=== PATIENT | female | born 2005 | race Caucasian/White ===

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

== ENCOUNTER 2024-01-04 23:47 | Emergency (ER) | payer MEDICAID ==
--- NOTE | 2024-01-04 23:52 | ERPHSYRPT ---
- History of Present Illness Time Seen by Provider: 01/04/24 23:52 Historian: patient, family Exam Limitations: no limitations Physician History: This is a morbidly obese 18-year-old white female patient who has a history of migraine headaches and depression and presents to the emergency department with her mother by private vehicle secondary to right upper quadrant abdominal pain that occurred after eating [employer] double cheeseburger at 1930 and then eating again at 2100 macaroni and cheese with hot dogs in it. The pain is described as sharp with intermittent throbbing. Patient still has her gallbladder in place. She has bloated and belching gassy symptoms. She denies dark urine and denies acholic stools. She has no chest pain. She is not short of breath. Timing/Duration: today Quality: sharpness, throbbing (Remittent knee) Abdominal Pain Onset Location: RUQ Pain Radiation: back (Straight through to her back) Severity of Pain-Max: moderate Severity of Pain-Current: mild Modifying Factors: Improves With: eating Associated Symptoms: No chest pain, No diarrhea, No fever/chills, No nausea, No shortness of breath, No vomiting Previous symptoms: same symptoms as today Allergies/Adverse Reactions: No Known Drug Allergies Allergy (Verified 01/05/24 00:01) Home Medications: Bupropion HCl 150 mg Sr [Wellbutrin SR 150 MG] 150 mg PO DAILY 01/05/24 [History] Hx Tetanus, Diphtheria Vaccination/Date Given: Yes Hx Influenza Vaccination/Date Given: No Hx Pneumococcal Vaccination/Date Given: No Travel Risk - International Travel Have you traveled outside of the country in past 3 weeks: No - Emerging Infectious Disease Are you exhibiting symptoms associated with any current EIDs: No - Review of Systems Constitutional: No Symptoms Eyes: No Symptoms Ears, Nose, & Throat: No Symptoms Respiratory: No Symptoms Cardiac: No Symptoms Abdominal/Gastrointestinal: Abdominal Pain, Appetite Changes, No Nausea, No Vomiting, No Diarrhea Genitourinary Symptoms: No Symptoms Musculoskeletal: No Symptoms Skin: No Symptoms Neurological: No Symptoms Psychological: No Symptoms Endocrine: No Symptoms Hematologic/Lymphatic: No Symptoms Immunological/Allergic: No Symptoms All Other Systems: Reviewed and Negative - Past Medical History Pertinent Past Medical History: Yes Neurological History: Migraines ENT History: No Pertinent History Cardiac History: No Pertinent History Respiratory History: No Pertinent History Endocrine Medical History: No Pertinent History Musculoskeletal History: Fractures GI Medical History: No Pertinent History History: No Pertinent History Psycho-Social History: Depression Female Reproductive Disorders: Menstrual Problems Other Medical History: pcos - Past Surgical History Past Surgical History: Yes Neuro Surgical History: No Pertinent History Cardiac: No Pertinent History Respiratory: No Pertinent History Gastrointestinal: No Pertinent History Genitourinary: No Pertinent History Musculoskeletal: No Pertinent History Female Surgical History: No Pertinent History - Social History Smoking Status: Never smoker Exposure to second hand smoke: Yes Drug Use: none Patient Lives Alone: No - Nursing Vital Signs Nursing Vital Signs: Initial Vital Signs Temperature 97.6 F 01/05/24 00:06 Pulse Rate 71 01/05/24 00:06 Respiratory Rate 18 01/05/24 00:06 Blood Pressure 116/77 01/05/24 00:06 O2 Sat by Pulse Oximetry 99 01/05/24 00:06 Pain Scale Pain Intensity 1 - Physical Exam General Appearance: mild distress, alert, anxiety, obese Eye Exam: PERRL/EOMI, post op pupil defect (L) Ears, Nose, Throat Exam: normal ENT inspection, moist mucous membranes Neck Exam: normal inspection, non-tender, supple, full range of motion Respiratory Exam: normal breath sounds, lungs clear, airway intact, No chest tenderness, No respiratory distress Cardiovascular Exam: regular rate/rhythm, normal heart sounds, normal peripheral pulses Gastrointestinal/Abdomen Exam: soft, normal bowel sounds, tenderness (Right upp er quadrant), guarding (Right upper quadrant) Pelvic Exam: not done Rectal Exam: not done Back Exam: normal inspection, normal range of motion, No CVA tenderness, No vertebral tenderness Extremity Exam: normal inspection, normal range of motion, pelvis stable Neurologic Exam: alert, oriented x 3, cooperative, nursing assoc II-XII nml as tested, nml cerebellar function, nml station & gait, sensation nml Skin Exam: normal color, warm, dry Lymphatic Exam: No adenopathy SpO2 Interpretation: normal O2 Delivery: Room Air - Course Nursing assessment & vital signs reviewed: Yes Ordered Tests: Active Orders 24 hr Category Date Time Status IV Insertion STAT Care 01/05/24 00:31 Active ABDOMEN AND PELVIS W/0 CONTRAS [CT] Stat Exams 01/05/24 00:32 Completed AMYLASE Stat Lab 01/05/24 00:45 Completed CBC W DIFF Stat Lab 01/05/24 00:45 Completed CMP Stat Lab 01/05/24 00:45 Completed CULTURE,URINE Stat Lab 01/05/24 00:33 Received HCG QUALITATIVE, URINE Stat Lab 01/05/24 00:33 Completed LIPASE Stat Lab 01/05/24 00:45 Completed UA W/RFX UR CULTURE Stat Lab 01/05/24 00:33 Completed Medication Summary Generic Name Dose Route Start Last Admin Trade Name Sophie PRN Reason Stop Dose Admin Ceftriaxone Sodium 1 gm in 100 mls @ 200 mls/hr 01/05/24 01:47 01/05/24 02:04 Rocephin 1 Gm / 100 Ml Nacl IV 01/05/24 02:16 200 mls/hr STAT ONE 200 mls/hr Administration Discontinued Medications Generic Name Dose Route Start Last Admin Trade Name Sophie PRN Reason Stop Dose Admin Hydrocodone Bitart/Acetaminophen 2 tab 01/05/24 01:49 Hydrocodone/Apap 5/325 1 Tab Tablet PO 01/05/24 01:50 SENT HOME W/ PATIENT ONE Hydromorphone HCl 0.5 mg 01/05/24 00:30 01/05/24 00:37 Hydromorphone 1 Mg/1ml Inj IV 01/05/24 00:31 Not Given STAT ONE Sodium Chloride 1,000 mls @ 999 mls/hr 01/05/24 00:31 01/05/24 01:49 Sodium Chloride 0.9% 1000 Ml IV 01/05/24 01:31 Infused .Q1H1M STA Infusion Sodium Chloride Confirm 01/05/24 00:36 Sodium Chloride 0.9% 1000 Ml Administered 01/05/24 00:37 Dose 1,000 mls @ ud .ROUTE .STK-MED ONE Ceftriaxone Sodium Confirm 01/05/24 02:02 Rocephin 1 Gm / 100 Ml Nacl Administered 01/05/24 02:03 Dose 1 gm in 100 mls @ ud IV .STK-MED ONE Ketorolac Tromethamine 30 mg 01/05/24 00:35 01/05/24 00:49 Ketorolac Tromethamine 30 Mg/Ml Inj IV 01/05/24 00:36 30 mg STAT ONE Administration Ketorolac Tromethamine Confirm 01/05/24 00:36 Ketorolac Tromethamine 30 Mg/Ml Inj Administered 01/05/24 00:37 Dose 30 mg .ROUTE .STK-MED ONE Ondansetron HCl 4 mg 01/05/24 00:30 01/05/24 00:49 Ondansetron Hcl 4 Mg/2 Ml Vial IV 01/05/24 00:31 4 mg STAT ONE Administration Ondansetron HCl Confirm 01/05/24 00:36 Ondansetron Hcl 4 Mg/2 Ml Vial Administered 01/05/24 00:37 Dose 4 mg .ROUTE .STK-MED ONE Pantoprazole Sodium 40 mg 01/05/24 00:31 01/05/24 00:49 Pantoprazole 40 Mg Vial IV 01/05/24 00:32 40 mg STAT ONE Administration Pantoprazole Sodium Confirm 01/05/24 00:36 Pantoprazole 40 Mg Vial Administered 01/05/24 00:37 Dose 40 mg IV .K-MED ONE Lab/Rad Data: Laboratory Result Diagrams 01/05/24 00:45 01/05/24 00:45 Laboratory Results 01/05/24 01/05/24 01/05/24 Range/Units 00:45 00:45 00:33 WBC 13.9 H (3.98-10.04) x10^3/uL RBC 4.25 (3.93-5.22) x10^6/uL Hgb 11.8 (11.2-15.7) g/dL Hct 36.7 (34.1-44.9) % MCV 86.4 (79.4-94.8) fL MCH 27.8 (25.6-32.2) pg MCHC 32.2 (32.2-35.5) g/dL RDW 12.2 (11.7-14.4) % Plt Count 361 (182-369) x10^3/uL MPV 9.9 (9.4-12.3) fL Gran % 57.7 (34.0-71.1) % Immature Gran % (Auto) 0.2 (0.001-0.429) % Nucleat RBC Rel Count 0.0 (0.00-0.2) % Eos # (Auto) 0.13 (0.04-0.36) x10^3/uL Immature Gran # (Auto) 0.03 (0.001-0.031) x10^3u/L Absolute Lymphs (auto) 5.03 H (1.18-3.74) x10^3/uL Absolute Monos (auto) 0.62 (0.24-0.86) x10^3/uL Absolute Nucleated RBC 0.00 (0.00-0.012) x10^3u/L Lymphocytes % 36.3 (19.3-51.7) % Monocytes % 4.5 L (4.7-12.5) % Eosinophils % 0.9 (0.7-5.8) % Basophils % 0.4 (0.1-1.2) % Absolute Granulocytes 8.00 H (1.56-6.13) x10^3/uL Basophils # 0.06 (0.01-0.08) x10^3/uL Sodium 139 (135-145) mmol/L Potassium 3.8 (3.5-5.1) mmol/L Chloride 105 (98-107) mmol/L Carbon Dioxide 24 (22-30) mmol/L Anion Gap 14.0 (5-15) MEQ/L BUN 12 (7-17) mg/dL Creatinine 0.64 (0.52-1.04) mg/dL Estimated GFR 130.5 ML/MIN Glucose 113 H (74-106) mg/dL Calcium 9.4 (8.4-10.2) mg/dL Total Bilirubin 0.30 (0.2-1.3) mg/dL AST 67 H (14-36) U/L ALT 41 H (0-35) U/L Alkaline Phosphatase 64 (38-126) U/L Serum Total Protein 7.6 (6.3-8.2) g/dL Albumin 4.4 (3.5-5.0) g/dL Amylase 49 (30-110) U/L Lipase 51 (23-300) U/L Urine Color (Yellow) Urine Appearance (Clear) Urine pH (4.6-8.0) Ur Specific [place] (1.005-1.030) Urine Protein (Negative) Urine Glucose (UA) (Negative) mg/dL Urine Ketones (Negative) Urine Blood (Negative) Urine Nitrite (Negative) Urine Bilirubin (Negative) Urine Urobilinogen (0.2) mg/dL Ur Leukocyte Esterase (Negative) U Hyaline Cast (Auto) (0-2) /LPF Urine Microscopic RBC (0-5) /HPF Urine Microscopic WBC (0-5) /HPF Ur Epithelial Cells (None Seen) /HPF Urine Bacteria (None Seen) /HPF Urine Culture Reflexed (NO) Urine HCG, Qual NEGATIVE (NEGATIVE) 01/05/24 Range/Units 00:33 WBC (3.98-10.04) x10^3/uL RBC (3.93-5.22) x10^6/uL Hgb (11.2-15.7) g/dL Hct (34.1-44.9) % MCV (79.4-94.8) fL MCH (25.6-32.2) pg MCHC (32.2-35.5) g/dL RDW (11.7-14.4) % Plt Count (182-369) x10^3/uL MPV (9.4-12.3) fL Gran % (34.0-71.1) % Immature Gran % (Auto) (0.001-0.429) % Nucleat RBC Rel Count (0.00-0.2) % Eos # (Auto) (0.04-0.36) x10^3/uL Immature Gran # (Auto) (0.001-0.031) x10^3u/L Absolute Lymphs (auto) (1.18-3.74) x10^3/uL Absolute Monos (auto) (0.24-0.86) x10^3/uL Absolute Nucleated RBC (0.00-0.012) x10^3u/L Lymphocytes % (19.3-51.7) % Monocytes % (4.7-12.5) % Eosinophils % (0.7-5.8) % Basophils % (0.1-1.2) % Absolute Granulocytes (1.56-6.13) x10^3/uL Basophils # (0.01-0.08) x10^3/uL Sodium (135-145) mmol/L Potassium (3.5-5.1) mmol/L Chloride (98-107) mmol/L Carbon Dioxide (22-30) mmol/L Anion Gap (5-15) MEQ/L BUN (7-17) mg/dL Creatinine (0.52-1.04) mg/dL Estimated GFR ML/MIN Glucose (74-106) mg/dL Calcium (8.4-10.2) mg/dL Total Bilirubin (0.2-1.3) mg/dL AST (14-36) U/L ALT (0-35) U/L Alkaline Phosphatase (38-126) U/L Serum Total Protein (6.3-8.2) g/dL Albumin (3.5-5.0) g/dL Amylase (30-110) U/L Lipase (23-300) U/L Urine Color Yellow (Yellow) Urine Appearance Cloudy A (Clear) Urine pH 7.0 (4.6-8.0) Ur Specific [place] 1.025 (1.005-1.030) Urine Protein Trace A (Negative) Urine Glucose (UA) Negative (Negative) mg/dL Urine Ketones Negative (Negative) Urine Blood Moderate A (Negative) Urine Nitrite Negative (Negative) Urine Bilirubin Negative (Negative) Urine Urobilinogen 0.2 (0.2) mg/dL Ur Leukocyte Esterase Moderate A (Negative) U Hyaline Cast (Auto) NONE SEEN (0-2) /LPF Urine Microscopic RBC 0-2 (0-5) /HPF Urine Microscopic WBC 21-50 A (0-5) /HPF Ur Epithelial Cells Few (None Seen) /HPF Urine Bacteria Few A (None Seen) /HPF Urine Culture Reflexed YES (NO) Urine HCG, Qual (NEGATIVE) - Progress Progress: improved, pain not gone completely Progress Note: 01/05/24 00:56 My medical decision making and the assignment of moderate complexity to this patient's medical issue today is based on review of the patient's past medical history, review of the patient's medication list, review of the patient drug allergy list, history present illness and physical findings on examination. The workup in this patient includes placement of intravenous line, infusion of normal saline solution, infusion of Zofran intravenously, infusion of Dilaudid intravenously, CBC, CMP, amylase, lipase, urinary hCG, urinalysis, CT scan of the abdomen pelvis without contrast. Differential diagnosis includes but not limited to cholelithiasis, cholecystitis, pancreatitis, bowel obstruction, appendicitis, colitis 01/05/24 02:[address] scan of the abdomen pelvis without contrast was interpreted by the radiologist and I reviewed the impression. The impression states no acute intra-abdominal or intrapelvic abnormality. I interpreted the patient's laboratory data results. There is leukocytosis and urinary tract infection. Counseled pt/family regarding: lab results, diagnosis, need for follow-up, rad results Medical Desision Making - Independent Historian Additional History obtained from: Mother - Diagnostic Testing Diagnostic test were ordered, analyzed, and reviewed by me: Yes Radiological Interpretation: Reviewed by me, Teleradiologist Report - Risk of complications The pt has a mod risk of morbidity or mortality based on: Need for prescription drug management - Departure Departure Disposition: Home Clinical Impression: UTI (urinary tract infection), Right upper quadrant abdominal pain Condition: Stable Critical Care Time: No Referrals: TAL TORREZ PA [Primary Care Provider] - Follow up/PCP as directed Additional Instructions: Drink plenty fluids. Take your medication as prescribed. Call your primary care provider today to make arrangements for follow-up appointment to be seen and evaluated in the next 3 to 5 days. Take Tylenol and ibuprofen for pain control. Avoid fatty greasy spicy foods. Prescriptions: Ciprofloxacin [Cipro 500 MG] 500 mg PO BID #14 tablet
[2024-01-05 00:11] VITALS: TEMP 97.6
[2024-01-05] MEDS ORDERED: TORAdol 30 mg Injection ONE (00:36)
[2024-01-05] MEDS ORDERED: Sodium Chloride 0.9% 1000 ML 1,000 ML ONE (00:36)
[2024-01-05] MEDS ORDERED: Zofran 4 MG/2 ML VIAL ONE (00:36)
[2024-01-05] MEDS ORDERED: PROTONIX 40 MG IV IV ONE (00:36)
[2024-01-05] MEDS: Hydromorphone 1 mg/ml Injection IV ONE (00:37)
[2024-01-05] MEDS: Sodium Chloride 0.9% 1000 ML 1,000 ML IV STA (00:48)
[2024-01-05] MEDS: Zofran 4 MG/2 ML VIAL IV ONE (00:49)
[2024-01-05] MEDS: PROTONIX 40 MG IV IV ONE (00:49)
[2024-01-05] MEDS: TORAdol 30 mg Injection IV ONE (00:49)
[2024-01-05 00:51] LABS: BASOPHIL % 0.4 % (0.1-1.2); Basophil (Absolute #) 0.06 x10^3/uL (0.01-0.08); Eosinophil % 0.9 % (0.7-5.8); Eosinophil (Absolute #) 0.13 x10^3/uL (0.04-0.36); Hematocrit 36.7 % (34.1-44.9); Hemoglobin 11.8 g/dL (11.2-15.7); IMMATURE GRAN # 0.03 x10^3u/L (0.001-0.031); IMMATURE GRAN % 0.2 % (0.001-0.429); Lymphocyte (Absolute #) 5.03 x10^3/uL (1.18-3.74); Lymphocytes % 36.3 % (19.3-51.7); Mean Cell Volume 86.4 fL (79.4-94.8); Mean Corpuscular Hemoglobin 27.8 pg (25.6-32.2); Mean Corpuscular Hgb Concent. 32.2 g/dL (32.2-35.5); Mean Platelet Volume 9.9 fL (9.4-12.3); Monocyte (Absolute #) 0.62 x10^3/uL (0.24-0.86); Monocytes % 4.5 % (4.7-12.5); Neutrophil % 57.7 % (34.0-71.1); Platelet Count 361 x10^3/uL (182-369); Red Blood Count 4.25 x10^6/uL (3.93-5.22); Red Cell Distribution Width 12.2 % (11.7-14.4); White Blood Count 13.9 x10^3/uL (3.98-10.04)
[2024-01-05 00:54] LABS: HCG URINE TEST NEGATIVE (NEGATIVE)
[2024-01-05 00:56] LABS: Appearance Cloudy (Clear); Bacteria Few /HPF (None Seen); Bilirubin Negative (Negative); Blood Moderate (Negative); Epithelial Cells Few /HPF (None Seen); Glucose, Urine Negative (Negative); Hyaline Casts NONE SEEN /LPF (0-2); Ketones Negative (Negative); Leukocyte Esterase Moderate (Negative); Nitrite Negative (Negative); Protein,Urine Dip Trace (Negative); RBC 0-2 /HPF (0-5); Specific Gravity 1.025 (1.005-1.030); Urobilinogen 0.2 mg/dL (0.2); WBC 21-50 /HPF (0-5)
[2024-01-05 00:57] LABS: ADD URINE CULTURE? YES (NO)
[2024-01-05 01:04] LABS: ALBUMIN 4.4 g/dL (3.5-5.0); BILIRUBIN,TOTAL 0.3 mg/dL (0.2-1.3); Calcium 9.4 mg/dL (8.4-10.2); Creatinine 1 0.64 mg/dL (0.52-1.04); EST GLOMERULAR FILTRATION RATE 130.5 ML/MIN; Potassium 3.8 mmol/L (3.5-5.1); Total Protein 7.6 g/dL (6.3-8.2)
[2024-01-05] MEDS ORDERED: ROCEPHIN 1 GM / 100 ML NaCl 1 GM/100 ML IVPB IV ONE (02:02)
[2024-01-05] MEDS: ROCEPHIN 1 GM / 100 ML NaCl 1 GM/100 ML IVPB IV ONE (02:04)
--- NOTE | 2024-01-05 02:12 | XRAY ---
CLINICAL HISTORY: Right side abdominal pain COMPARISON: Prior CT abdomen and pelvis dated 05/25/2023. TECHNIQUE: CT of abdomen and pelvis was performed without IV contrast.One of the following dose reduction techniques was utilized for this exam.Automated exposure control, adjustment of the mA and/or kV according to patient size, and use of iterative reconstruction. FINDINGS: Visualized lungs: No concerning findings. Evaluation of the abdominal and pelvic visceral organs is limited without intravenous contrast. The unenhanced liver, spleen, pancreas, and adrenal glands are grossly unremarkable. The gallbladder is present. The kidneys are normal in size and attenuation without obvious calcification. There is no hydronephrosis or perinephric stranding. The ureters are normal in caliber. No adenopathy or fluid collections are seen. No evidence of focal or diffuse bowel wall thickening or evidence of bowel obstruction is seen. The appendix is visualized in the right lower quadrant and appears within normal limits. The aorta is normal in caliber. The urinary bladder is normal in contour. Pelvic viscera are grossly unremarkable. No peritoneal nodularity. No ascites. No pneumoperitoneum. No aggressive appearing osseous lesions are identified. Fat containing umbilical hernia with size of defect measures about 21 x 19 mm. IMPRESSION: No imaging findings to explain patient's symptoms. Stable chronic findings. Electronically Signed by: Scot Jules MD. (01/05/2024 02:08:00 EDT)
[2024-01-05 02:15] VITALS: BP 116/72; PULSE 74; RESP 20; O2SAT 98
[2024-01-05] MEDS ORDERED: NORCO 5/325 MG ONE (02:15)
[2024-01-05] MEDS: NORCO 5/325 MG PO ONE (02:16)
[2024-01-05 03:20] LABS: Slide Review 1 YES
== END 2024-01-05 02:43 | disposition home or self-care (01) ==
LOC: ED 23:47
DX: N39.0 Urinary tract infection, site not specified (principal); R10.11 Right upper quadrant pain; Z79.899 Other long term (current) drug therapy
CPT/HCPCS: 36000; 36415; 74176; 80053; 81001; 81025; 82150; 83690; 85025; 87086; 96374; 99284; J0696; J1885; J2405; A9270-GY

== ENCOUNTER 2024-01-10 16:01 | Emergency (ER) | payer MEDICAID ==
[2024-01-10 16:21] VITALS: RESP 18; TEMP 97; O2SAT 98
[2024-01-10] MEDS ORDERED: TORAdol 30 mg Injection ONE (16:57)
[2024-01-10] MEDS: TORAdol 30 mg Injection IM ONE (16:58)
--- NOTE | 2024-01-10 17:02 | ERPHSYRPT ---
- History of Present Illness Time Seen by Provider: 01/10/24 16:56 Historian: patient, family Exam Limitations: no limitations Patient Subjective Stated Complaint: C/O intermittent right sided abdominal pain. Patient indicates she was here earlier in the week and diagnosed with a UTI. She was given a prescription for keflex and pepcid that patient states she picked up from the pharmacy but has never started taking them. Triage Nursing Assessment: Patient ambulated back to ER without difficulties. She is alert and oriented. No SOB. Skin tone normal. RUTH MORGAN. Physician History: C/O intermittent right sided abdominal pain. Patient indicates she was here earlier in the week and diagnosed with a UTI. She was given a prescription for keflex and pepcid that patient states she picked up from the pharmacy but has never started taking them. Timing/Duration: day(s) Abdominal Pain Onset Location: RUQ, epigastric Pain Radiation: scapula Severity of Pain-Max: mild Severity of Pain-Current: mild Modifying Factors: Improves With: nothing Associated Symptoms: denies symptoms Previous symptoms: same symptoms as today Body Map: 1 - pain 2 - pain radiation Allergies/Adverse Reactions: ciprofloxacin [From Cipro] Adverse Reaction (Verified 01/10/24 16:17) Rash Home Medications: Bupropion HCl 150 mg Sr [Wellbutrin SR 150 MG] 150 mg PO DAILY 01/05/24 [History] Hydrocodone/Acetaminophen [Hydrocodone-Acetamin 5-325 mg] 1 tab PO Q6-8HPRN PRN 01/10/24 [History] Hx Tetanus, Diphtheria Vaccination/Date Given: Yes Hx Influenza Vaccination/Date Given: No Hx Pneumococcal Vaccination/Date Given: No Immunizations Up to Date: Yes Travel Risk - International Travel Have you traveled outside of the country in past 3 weeks: No - Emerging Infectious Disease Are you exhibiting symptoms associated with any current EIDs: Yes Symptoms: Abdominal Pain - Review of Systems Constitutional: No Symptoms, No Fever, No Chills Eyes: No Symptoms Ears, Nose, & Throat: No Symptoms Respiratory: No Symptoms Cardiac: No Symptoms Abdominal/Gastrointestinal: Abdominal Pain, No Nausea, No Vomiting Genitourinary Symptoms: No Symptoms Musculoskeletal: No Symptoms Skin: No Symptoms Neurological: No Symptoms - Past Medical History Pertinent Past Medical History: Yes Neurological History: Migraines ENT History: No Pertinent History Cardiac History: No Pertinent History Respiratory History: No Pertinent History Endocrine Medical History: No Pertinent History Musculoskeletal History: Fractures GI Medical History: No Pertinent History History: No Pertinent History Psycho-Social History: Depression Female Reproductive Disorders: Menstrual Problems Other Medical History: pcos - Past Surgical History Past Surgical History: Yes Neuro Surgical History: No Pertinent History Cardiac: No Pertinent History Respiratory: No Pertinent History Gastrointestinal: No Pertinent History Genitourinary: No Pertinent History Musculoskeletal: No Pertinent History Female Surgical History: No Pertinent History - Female History Hx Last Menstrual Period: NOW Hx Now: No - Social History Smoking Status: Never smoker Exposure to second hand smoke: Yes Drug Use: none Patient Lives Alone: No - Social Determinants of Health Will the patient participate in the screening: Declined to provide - Nursing Vital Signs Nursing Vital Signs: Initial Vital Signs Blood Pressure 130/73 01/10/24 16:15 O2 Sat by Pulse Oximetry 98 01/10/24 16:15 Pain Scale Pain Intensity 7 - Physical Exam General Appearance: no apparent distress, alert Eye Exam: PERRL/EOMI, eyes nml inspection Ears, Nose, Throat Exam: normal ENT inspection, pharynx normal, moist mucous membranes Neck Exam: normal inspection, non-tender, supple, full range of motion Respiratory Exam: normal breath sounds, lungs clear, No respiratory distress Cardiovascular Exam: regular rate/rhythm, normal heart sounds Gastrointestinal/Abdomen Exam: soft, tenderness (RUQ,Epigastric), No mass Pelvic Exam: not done Rectal Exam: deferred Back Exam: normal inspection, normal range of motion, No CVA tenderness, No vertebral tenderness Extremity Exam: normal inspection, normal range of motion, pelvis stable Neurologic Exam: alert, oriented x 3, cooperative, normal mood/affect, nml cerebellar function, sensation nml, No motor deficits Skin Exam: normal color, warm, dry SpO2 Interpretation: normal SpO2: 98 O2 Delivery: Room Air - Course Nursing assessment & vital signs reviewed: Yes Ordered Tests: Medication Summary Discontinued Medications Generic Name Dose Route Start Last Admin Trade Name Freq PRN Reason Stop Dose Admin Ketorolac Tromethamine 60 mg 01/10/24 16:55 Ketorolac Tromethamine 30 Mg/Ml Inj IM 01/10/24 16:56 STAT ONE Lab/Rad Data: CT/ABDOMEN AND PELVIS W/0 CONTRAS CLINICAL HISTORY: Right side abdominal pain COMPARISON: Prior CT abdomen and pelvis dated 05/25/2023. TECHNIQUE: CT of abdomen and pelvis was performed without IV contrast.One of the following dose reduction techniques was utilized for this exam.Automated exposure control, adjustment of the mA and/or kV according to patient size, and use of iterative reconstruction. FINDINGS: Visualized lungs: No concerning findings. Evaluation of the abdominal and pelvic visceral organs is limited without intravenous contrast. The unenhanced liver, spleen, pancreas, and adrenal glands are grossly unremarkable. The gallbladder is present. The kidneys are normal in size and attenuation without obvious calcification. There is no hydronephrosis or perinephric stranding. The ureters are normal in caliber. No adenopathy or fluid collections are seen. No evidence of focal or diffuse bowel wall thickening or evidence of bowel obstruction is seen. The appendix is visualized in the right lower quadrant and appears within normal limits. The aorta is normal in caliber. The urinary bladder is normal in contour. Pelvic viscera are grossly unremarkable. No peritoneal nodularity. No ascites. No pneumoperitoneum. No aggressive appearing osseous lesions are identified. Fat containing umbilical hernia with size of defect measures about 21 x 19 mm. IMPRESSION: No imaging findings to explain patient's symptoms. Stable chronic findings. Electronically Signed by: Scot Jules MD. (01/05/2024 02:08:00 EDT) - Progress Progress: unchanged Progress Note: 01/10/24 16:59 Patient is advised to take her antibiotic as prescribed for her urinary tract infection. I discussed with patient and her mother about ordering outpatient gallbladder ultrasound to rule out gallstone or any other gallbladder related etiology as outpatient. Counseled pt/family regarding: lab results, diagnosis, need for follow-up, rad results Medical Desision Making - Independent Historian Additional History obtained from: Mother - Risk of complications Low Risk: Low risk of morbidity from additional dx testing or treatment - Departure Departure Disposition: Home Clinical Impression: UTI (urinary tract infection) Qualifiers: Urinary tract infection type: acute pyelonephritis Qualified Code(s): N10 - Acute pyelonephritis Abdominal pain Qualifiers: Abdominal location: right upper quadrant Qualified Code(s): R10.11 - Right upper quadrant pain Condition: Stable Critical Care Time: No Referrals: TAL TORREZ PA [Primary Care Provider] - Follow Up with PCP/3 days Instructions: Abdominal pain Additional Instructions: Please start taking your antibiotic which was given to you for your urinary tract infection. We have ordered outpatient gallbladder ultrasound for you please bring the order which you when you have a gallbladder ultrasound appointment. Discharge/Care Plan LITO CHAMPION was seen on 01/10/24 in the Emergency Room. The patient was counseled regarding Diagnosis,Lab results, Imaging studies, need for follow up and when to return to the Emergency Room. Prescriptions given: Discharge Note I have spoken with the patient and/or caregivers. I have explained the patient's condition, diagnosis and treatment plan based on the information available to me at this time. I have answered the patient's and/or caregiver's questions and addressed any concerns. The patient and/or caregivers have as good understanding of the patient's diagnosis, condition and treatment plan as can be expected at this point. The vital signs have been stable. The patient's condition is stable and appropriate for discharge from the emergency department. The patient will pursue further outpatient evaluation with the primary care physician or other designated or consulting physician as outlined in the dis charge instructions. The patient and/or caregivers are agreeable to this plan of care and follow-up instructions have been explained in detail. The patient and/or caregivers have received these instruction. The patient/and or caregivers are aware that any significant change in condition or worsening of symptoms should prompt an immediate return to this or the closest emergency department or call 911. LITO CHAMPION was seen on 01/10/24 n the Emergency Room. At that time you were treated for an emergent condition, during your visit Laboratory, Radiology and/or other procedures may have been ordered. It is very important that you follow-up with your Primary Care Physician MICA TORREZ within the next 24-48 hours to review your Emergency Room visit and the final results of testing that was ordered. Some test results such as Urine Cultures, Blood Cultures, and other cultures if ordered will not be finalized for 24-48 hours. If you do not have a Primary Care Provider please call the medical records department at [phone] ext [phone] to obtain a copy of your results or you may sign into our patient portal to obtain these results by visiting us @ [email or web address] and completing the following steps: 1. Click on the Patient Portal link 2. Click the Patient Self Enrollment Link to complete the enrollment form and entering your 3. Once the enrollment form is completed you will receive an email with a temporary ID and password at the email address you provided. 4. Next choose a user name and password. Your user name must be at least 4 characters long and your password must be at least 4 characters long. 5. Choose a security question from the list and provide your answer to the question. If you already have signed into the Health Portal you may access your Health Care Information 17/11 by the following steps: 1. Login to our website @ [email or web address] 2. Enter your original user name and password. FAQS The [facility] Health Portal is an online tool that contains your Lab Results, Radiology Reports, Visit History, Discharge Instructions and Health Summary Lab and Radiology Results will not be available for 72 hours on the portal. The Portal is a secure site, passwords are encryted and URLs are re-written so they cannot be copied and pasted. You and authorized family members are the only ones who can access your Portal. Also there is a timeout feature that protects your information if you leave the Portal page open. If you have technical difficulty please use the Contact Us link on the page this will allow you to submit any questions you have regarding the Portal or you may contact the Medical Record Department at [phone] ext [phone]. Outpatient Orders: GALLBLADDER Time Frame: 2 Days, Facility: [facility], Location: RADIOLOGY
[2024-01-10 17:17] VITALS: BP 131/75; PULSE 80
== END 2024-01-10 17:18 | disposition home or self-care (01) ==
LOC: ED 16:01
DX: N10 Acute pyelonephritis (principal); R10.11 Right upper quadrant pain; Z79.891 Long term (current) use of opiate analgesic; Z79.899 Other long term (current) drug therapy
CPT/HCPCS: 96372; 99283; J1885

== ENCOUNTER 2024-01-31 21:39 | Emergency (ER) | payer MEDICAID ==
[2024-01-31 22:13] VITALS: RESP 18; TEMP 97.4; O2SAT 99
[2024-01-31] MEDS ORDERED: TORAdol 30 mg Injection ONE (22:16)
[2024-01-31] MEDS ORDERED: XYLOCAINE VISCOUS 2% 15 ML CUP ONE (22:16)
[2024-01-31] MEDS ORDERED: PROTONIX 40 MG IV IV ONE (22:16)
[2024-01-31] MEDS ORDERED: MAALOX ES 30 ML UNIT DOSE ONE (22:16)
[2024-01-31] MEDS: GI COCKTAIL 45 ML (Maalox/Lidocaine) PO ONE (22:17)
[2024-01-31] MEDS: PROTONIX 40 MG IV IV ONE (22:17)
[2024-01-31] MEDS: TORAdol 30 mg Injection IV ONE (22:17)
[2024-01-31 22:25] LABS: Absolute Neutrophil Ct (ANC) 4.93 x10^3/uL (1.56-6.13); BASOPHIL % 0.5 % (0.1-1.2); Basophil (Absolute #) 0.05 x10^3/uL (0.01-0.08); Eosinophil % 0.9 % (0.7-5.8); Eosinophil (Absolute #) 0.08 x10^3/uL (0.04-0.36); Hemoglobin 11.9 g/dL (11.2-15.7); IMMATURE GRAN # 0.01 x10^3u/L (0.001-0.031); IMMATURE GRAN % 0.1 % (0.001-0.429); Lymphocyte (Absolute #) 3.85 x10^3/uL (1.18-3.74); Mean Cell Volume 83.9 fL (79.4-94.8); Mean Corpuscular Hemoglobin 27.7 pg (25.6-32.2); Mean Corpuscular Hgb Concent. 33.1 g/dL (32.2-35.5); Mean Platelet Volume 10.1 fL (9.4-12.3); Monocyte (Absolute #) 0.47 x10^3/uL (0.24-0.86); Neutrophil % 52.5 % (34.0-71.1); Platelet Count 310 x10^3/uL (182-369); Red Blood Count 4.29 x10^6/uL (3.93-5.22); White Blood Count 9.4 x10^3/uL (3.98-10.04)
[2024-01-31 22:36] LABS: Appearance Clear (Clear); Bacteria None Seen /HPF (None Seen); Bilirubin Negative (Negative); Blood Large (Negative); Epithelial Cells None Seen /HPF (None Seen); Glucose, Urine Negative (Negative); Hyaline Casts NONE SEEN /LPF (0-2); Ketones Negative (Negative); Leukocyte Esterase Small (Negative); Nitrite Negative (Negative); Ph 6.5 (4.6-8.0); Protein,Urine Dip Negative (Negative); Urobilinogen 0.2 mg/dL (0.2)
[2024-01-31 22:39] LABS: ALBUMIN 4.3 g/dL (3.5-5.0); ANION GAP 16.3 MEQ/L (5-15); BILIRUBIN,TOTAL 0.4 mg/dL (0.2-1.3); Calcium 9.6 mg/dL (8.4-10.2); Creatinine 1 0.62 mg/dL (0.52-1.04); EST GLOMERULAR FILTRATION RATE 131.5 ML/MIN; Potassium 3.8 mmol/L (3.5-5.1); Total Protein 7.2 g/dL (6.3-8.2)
[2024-01-31 22:46] VITALS: PULSE 69
--- NOTE | 2024-01-31 22:57 | ERPHSYRPT ---
- History of Present Illness Time Seen by Provider: 01/31/24 21:44 Historian: patient Exam Limitations: no limitations Patient Subjective Stated Complaint: pt states that the pain started in her back and is now has pain to upper rt quad Triage Nursing Assessment: pt ambulated into the er; pt is axo x4; c/o abd pain; pt states 6/10 pain to RUQ; abd large, round, soft, tender; active bowel sounds in all quads; pt states pain is worse with food; pt denies N/V/D; skin PDW; no respiratory distress present; hypertensive Physician History: 18 years old female with history of off-and-on upper abdominal pain specially in the right side for quite some time who has been seen in this ER multiple times and has CT/ultrasound done with negative gallstone/acute cholecystitis. She was prescribed Pepcid but she was out of town and has not been taking. Patient reports pain is getting worse intermittently for the last couple of weeks and today it started in the right back and now in the right anterior upper abdomen. Food makes it worse. No associated nausea or vomiting. No urinary complaints. Patient recently finished course of antibiotics for UTI. Allergies/Adverse Reactions: ciprofloxacin [From Cipro] Adverse Reaction (Verified 01/31/24 21:46) Rash Home Medications: Bupropion HCl 150 mg Sr [Wellbutrin SR 150 MG] 150 mg PO DAILY 01/05/24 [History] Hx Tetanus, Diphtheria Vaccination/Date Given: Yes Hx Influenza Vaccination/Date Given: No Hx Pneumococcal Vaccination/Date Given: No Immunizations Up to Date: Yes Travel Risk - International Travel Have you traveled outside of the country in past 3 weeks: No - Emerging Infectious Disease Are you exhibiting symptoms associated with any current EIDs: Yes Symptoms: Abdominal Pain - Review of Systems Constitutional: No Symptoms Ears, Nose, & Throat: No Symptoms Respiratory: No Symptoms Cardiac: No Symptoms Abdominal/Gastrointestinal: Abdominal Pain Genitourinary Symptoms: No Symptoms Musculoskeletal: Back Pain Skin: No Symptoms Neurological: No Symptoms Endocrine: No Symptoms Hematologic/Lymphatic: No Symptoms Immunological/Allergic: No Symptoms - Past Medical History Pertinent Past Medical History: Yes Neurological History: Migraines ENT History: No Pertinent History Cardiac History: No Pertinent History Respiratory History: No Pertinent History Endocrine Medical History: No Pertinent History Musculoskeletal History: Fractures GI Medical History: No Pertinent History, Other History: No Pertinent History Psycho-Social History: Depression Female Reproductive Disorders: Menstrual Problems Other Medical History: pcos. fatty liver - Past Surgical History Past Surgical History: Yes Neuro Surgical History: No Pertinent History Cardiac: No Pertinent History Respiratory: No Pertinent History Gastrointestinal: No Pertinent History Genitourinary: No Pertinent History Musculoskeletal: No Pertinent History Female Surgical History: No Pertinent History - Female History Hx Last Menstrual Period: 01/31/24 Hx Now: No - Social History Smoking Status: Never smoker Exposure to second hand smoke: Yes Drug Use: none Patient Lives Alone: No - Social Determinants of Health Will the patient participate in the screening: Declined to provide - Nursing Vital Signs Nursing Vital Signs: Initial Vital Signs Temperature 97.4 F 01/31/24 21:52 Pulse Rate 79 01/31/24 21:52 Respiratory Rate 18 01/31/24 21:52 Blood Pressure 167/103 01/31/24 21:52 O2 Sat by Pulse Oximetry 99 01/31/24 21:52 Pain Scale Pain Intensity 6 - Physical Exam General Appearance: no apparent distress, alert Eye Exam: PERRL/EOMI Ears, Nose, Throat Exam: normal ENT inspection Neck Exam: normal inspection, full range of motion Respiratory Exam: normal breath sounds, lungs clear Cardiovascular Exam: regular rate/rhythm, normal heart sounds Gastrointestinal/Abdomen Exam: soft, normal bowel sounds, tenderness (Minimal tenderness epigastric/right upper quadrant) Back Exam: normal inspection, normal range of motion Neurologic Exam: alert, oriented x 3, cooperative Skin Exam: normal color SpO2 Interpretation: normal SpO2: 99 O2 Delivery: Room Air Ordered Tests: Active Orders 24 hr Category Date Time Status IV Insertion STAT Care 01/31/24 22:07 Active CBC W DIFF Stat Lab 01/31/24 22:10 Completed CMP Stat Lab 01/31/24 22:10 Completed CULTURE,URINE Stat Lab 01/31/24 22:10 Received LIPASE Stat Lab 01/31/24 22:10 Completed UA W/RFX UR CULTURE Stat Lab 01/31/24 22:10 Completed Medication Summary Discontinued Medications Generic Name Dose Route Start Last Admin Trade Name Freq PRN Reason Stop Dose Admin Al Hydrox/Mg Hydrox/Simethicone Confirm 01/31/24 22:16 Mag Hydrox/Al Hydrox/Simeth 30 Ml Udcup Administered 01/31/24 22:17 Dose 30 ml .ROUTE .STK-MED ONE Ketorolac Tromethamine 30 mg 01/31/24 22:07 01/31/24 22:17 Ketorolac Tromethamine 30 Mg/Ml Inj IV 01/31/24 22:08 30 mg STAT ONE Administration Ketorolac Tromethamine Confirm 01/31/24 22:16 Ketorolac Tromethamine 30 Mg/Ml Inj Administered 01/31/24 22:17 Dose 30 mg .ROUTE .STK-MED ONE Lidocaine HCl Confirm 01/31/24 22:16 Lidocaine Hcl 2% Viscous 15 Ml Udcup Administered 01/31/24 22:17 Dose 15 ml .ROUTE .STK-MED ONE Magnesium Hydroxide 45 ml 01/31/24 22:07 01/31/24 22:17 Mag Hydrx/Alum Hyd/Simeth/Lido 45 Ml Bottle PO 01/31/24 22:08 45 ml STAT ONE Administration Pantoprazole Sodium 40 mg 01/31/24 22:07 01/31/24 22:17 Pantoprazole 40 Mg Vial IV 01/31/24 22:08 40 mg STAT ONE Administration Pantoprazole Sodium Confirm 01/31/24 22:16 Pantoprazole 40 Mg Vial Administered 01/31/24 22:17 Dose 40 mg IV .STK-MED ONE Lab/Rad Data: Laboratory Result Diagrams 01/31/24 22:10 01/31/24 22:10 Laboratory Results 01/31/24 01/31/24 01/31/24 Range/Units 22:10 22:10 22:10 WBC 9.4 (3.98-10.04) x10^3/uL RBC 4.29 (3.93-5.22) x10^6/uL Hgb 11.9 (11.2-15.7) g/dL Hct 36.0 (34.1-44.9) % MCV 83.9 (79.4-94.8) fL MCH 27.7 (25.6-32.2) pg MCHC 33.1 (32.2-35.5) g/dL RDW 12.0 (11.7-14.4) % Plt Count 310 (182-369) x10^3/uL MPV 10.1 (9.4-12.3) fL Gran % 52.5 (34.0-71.1) % Immature Gran % (Auto) 0.1 (0.001-0.429) % Nucleat RBC Rel Count 0.0 (0.00-0.2) % Eos # (Auto) 0.08 (0.04-0.36) x10^3/uL Immature Gran # (Auto) 0.01 (0.001-0.031) x10^3u/L Absolute Lymphs (auto) 3.85 H (1.18-3.74) x10^3/uL Absolute Monos (auto) 0.47 (0.24-0.86) x10^3/uL Absolute Nucleated RBC 0.00 (0.00-0.012) x10^3u/L Lymphocytes % 41.0 (19.3-51.7) % Monocytes % 5.0 (4.7-12.5) % Eosinophils % 0.9 (0.7-5.8) % Basophils % 0.5 (0.1-1.2) % Absolute Granulocytes 4.93 (1.56-6.13) x10^3/uL Basophils # 0.05 (0.01-0.08) x10^3/uL Sodium 140 (135-145) mmol/L Potassium 3.8 (3.5-5.1) mmol/L Chloride 108 H (98-107) mmol/L Carbon Dioxide 20 L (22-30) mmol/L Anion Gap 16.3 H (5-15) MEQ/L BUN 13 (7-17) mg/dL Creatinine 0.62 (0.52-1.04) mg/dL Estimated GFR 131.5 ML/MIN Glucose 111 H (74-106) mg/dL Calcium 9.6 (8.4-10.2) mg/dL Total Bilirubin 0.40 (0.2-1.3) mg/dL AST 25 (14-36) U/L ALT 35 (0-35) U/L Alkaline Phosphatase 70 (38-126) U/L Serum Total Protein 7.2 (6.3-8.2) g/dL Albumin 4.3 (3.5-5.0) g/dL Lipase 46 (23-300) U/L Urine Color Yellow (Yellow) Urine Appearance Clear (Clear) Urine pH 6.5 (4.6-8.0) Ur Specific [place] 1.010 (1.005-1.030) Urine Protein Negative (Negative) Urine Glucose (UA) Negative (Negative) mg/dL Urine Ketones Negative (Negative) Urine Blood Large A (Negative) Urine Nitrite Negative (Negative) Urine Bilirubin Negative (Negative) Urine Urobilinogen 0.2 (0.2) mg/dL Ur Leukocyte Esterase Small A (Negative) U Hyaline Cast (Auto) NONE SEEN (0-2) /LPF Urine Microscopic RBC 11-20 A (0-5) /HPF Urine Microscopic WBC 11-20 A (0-5) /HPF Ur Epithelial Cells None Seen (None Seen) /HPF Urine Bacteria None Seen (None Seen) /HPF Urine Culture Reflexed YES (NO) - Progress Progress: improved, re-examined Progress Note: 01/31/24 22:55 18-year-old is evaluated in the ER for epigastric/right upper abdominal pain for quite some time which is lately getting worse. Patient has a CT and ultrasound done which are negative for acute cholecystitis/cholelithiasis or pancreatitis. Patient was prescribed Pepcid but has not been taking it for quite some time and her pain is getting worse. She has minimal tenderness in right upper quadrant and epigastric area. Negative Sheffield sign. Normal white count, chemistries fairly unremarkable with normal lipase. I have reviewed patient ultrasound which showed fatty liver and no acute cholecystitis finding. Also CT abdomen pelvis was fairly unremarkable for any acute findings. She is given Protonix, GI cocktail and Toradol, on reevaluation she is feeling better. I believe patient symptoms are more of a acid peptic disease related and will give a prescription of Protonix to go home and outpatient follow-up recommended. Do not think she needs another imaging and can be discharged with outpatient follow-up. Discussed signs symptoms of worsening return to ER which she seems understanding. Stable for discharge. Counseled pt/family regarding: lab results, diagnosis, need for follow-up Medical Desision Making - Diagnostic Testing Diagnostic test were ordered, analyzed, and reviewed by me: Yes - Risk of complications The pt has a mod risk of morbidity or mortality based on: Need for prescription drug management - Departure Departure Disposition: Home Clinical Impression: Right upper quadrant abdominal pain, GERD (gastroesophageal reflux disease) Condition: Stable Critical Care Time: No Referrals: KHRIS BENTLEY FNP [Primary Care Provider] - Follow up with PCP 1 day Instructions: Severe Abdominal Pain, Adult (DC), Acid Reflux, Adult and Adolescent ED Additional Instructions: Take Tylenol as needed. Follow-up with primary care for reevaluation. Return to ER for intractable pain/vomiting/fever chills etc. Prescriptions: PANTOPRAZOLE 40 mg Tablet [Protonix 40MG Tablet] 40 mg PO QAM #30 tab
[2024-01-31 23:11] VITALS: BP 132/83
== END 2024-01-31 23:12 | disposition home or self-care (01) ==
LOC: ED 21:39
DX: K21.9 Gastro-esophageal reflux disease without esophagitis (principal); R10.11 Right upper quadrant pain; Z79.899 Other long term (current) drug therapy
CPT/HCPCS: 36000; 36415; 80053; 81001; 83690; 85025; 87086; 96374; 96375; 99284; J1885; A9270-GY

== ENCOUNTER 2024-02-03 02:10 | Emergency (ER) | payer MEDICAID ==
--- NOTE | 2024-02-03 02:37 | ERPHSYRPT ---
- History of Present Illness Time Seen by Provider: 02/03/24 02:37 Source: patient Exam Limitations: no limitations Physician History: 18-year-old female presents to emergency department for evaluation of right upper quadrant pain. Patient reports she was in our ED for the same just 2 days ago. Patient was diagnosed with GERD. Patient prescribed antacids but she has not taken her antacids. Patient reports her pain awoke her from her sleep. No trauma. No fever. No strenuous activity. Symptoms are mild to moderate in intensity. No specific worsening or improving factors. Mother at bedside. Patient voices no other complaints or concerns at this time. Portions of this note were created with voice recognition technology. There may be grammatical, spelling, punctuation or sound alike errors Timing/Duration: today Severity: moderate Modifying Factors: Improves With: nothing Associated Symptoms: denies symptoms Allergies/Adverse Reactions: ciprofloxacin [From Cipro] Adverse Reaction (Verified 02/03/24 02:17) Rash Home Medications: Bupropion HCl 150 mg Sr [Wellbutrin SR 150 MG] 150 mg PO DAILY 01/05/24 [History] Hx Tetanus, Diphtheria Vaccination/Date Given: Yes Hx Influenza Vaccination/Date Given: No Hx Pneumococcal Vaccination/Date Given: No Travel Risk - Emerging Infectious Disease Are you exhibiting symptoms associated with any current EIDs: Yes Symptoms: Abdominal Pain - Review of Systems Constitutional: No Symptoms, No Fever, No Chills Eyes: No Symptoms Ears, Nose, & Throat: No Symptoms Respiratory: No Symptoms, No Cough, No Dyspnea Cardiac: No Symptoms, No Chest Pain, No Edema, No Syncope Abdominal/Gastrointestinal: No Symptoms, No Abdominal Pain, No Nausea, No Vomiting, No Diarrhea Genitourinary Symptoms: No Symptoms, No Dysuria Musculoskeletal: No Symptoms, No Back Pain, No Neck Pain Skin: No Symptoms, No Rash Neurological: No Symptoms, No Dizziness, No Focal Weakness, No Sensory Changes Psychological: No Symptoms Endocrine: No Symptoms Hematologic/Lymphatic: No Symptoms Immunological/Allergic: No Symptoms All Other Systems: Reviewed and Negative - Past Medical History Pertinent Past Medical History: Yes Neurological History: Migraines ENT History: No Pertinent History Cardiac History: No Pertinent History Respiratory History: No Pertinent History Endocrine Medical History: No Pertinent History Musculoskeletal History: Fractures GI Medical History: No Pertinent History, Other History: No Pertinent History Psycho-Social History: Depression Female Reproductive Disorders: Menstrual Problems Other Medical History: pcos. fatty liver - Past Surgical History Past Surgical History: Yes Neuro Surgical History: No Pertinent History Cardiac: No Pertinent History Respiratory: No Pertinent History Gastrointestinal: No Pertinent History Genitourinary: No Pertinent History Musculoskeletal: No Pertinent History Female Surgical History: No Pertinent History - Female History Hx Last Menstrual Period: 01/31/24 Hx Now: No - Social History Smoking Status: Never smoker Exposure to second hand smoke: Yes Drug Use: none Patient Lives Alone: No - Social Determinants of Health Will the patient participate in the screening: Declined to provide - Nursing Vital Signs Nursing Vital Signs: Initial Vital Signs Temperature 97.3 F 02/03/24 02:18 Pulse Rate 79 02/03/24 02:18 Respiratory Rate 18 02/03/24 02:18 Blood Pressure 134/79 02/03/24 02:18 O2 Sat by Pulse Oximetry 98 02/03/24 02:18 Pain Scale Pain Intensity 5 - Physical Exam General Appearance: no apparent distress, alert Eye Exam: PERRL/EOMI, eyes nml inspection Ears, Nose, Throat Exam: normal ENT inspection, TMs normal, pharynx normal, moist mucous membranes Neck Exam: normal inspection, non-tender, supple, full range of motion Respiratory Exam: normal breath sounds, lungs clear, No respiratory distress Cardiovascular Exam: regular rate/rhythm, normal heart sounds, normal peripheral pulses Gastrointestinal/Abdomen Exam: soft, normal bowel sounds, other (Tenderness to palpation right upper quadrant), No tenderness, No mass Back Exam: normal inspection, normal range of motion, No CVA tenderness, No vertebral tenderness Extremity Exam: normal inspection, normal range of motion, pelvis stable Neurologic Exam: alert, oriented x 3, cooperative, normal mood/affect, sensation nml, No motor deficits Skin Exam: normal color, warm, dry, No rash Lymphatic Exam: No adenopathy SpO2 Interpretation: normal SpO2: 98 O2 Delivery: Room Air - Course Nursing assessment & vital signs reviewed: Yes - CT Exams Abdomen/Pelvis CT Interpretation: Tele-radiologist Report (CT abdomen pelvis unremarkable) Ordered Tests: Active Orders 24 hr Category Date Time Status IV Insertion STAT Care 02/03/24 02:27 Active ABDOMEN AND PELVIS W/0 CONTRAS [CT] Stat Exams 02/03/24 02:28 Completed CBC W DIFF Stat Lab 02/03/24 02:39 Completed CMP Stat Lab 02/03/24 02:39 Completed CULTURE,URINE Stat Lab 02/03/24 03:35 Received HCG QUALITATIVE, URINE Stat Lab 02/03/24 03:35 Completed LIPASE Stat Lab 02/03/24 02:39 Completed TROPONIN Q4H Lab 02/03/24 02:39 Completed TROPONIN Q4H Lab 02/03/24 06:30 Ordered TROPONIN Q4H Lab 02/03/24 10:30 Ordered UA W/RFX UR CULTURE Stat Lab 02/03/24 03:35 Completed Medication Summary Generic Name Dose Route Start Last Admin Trade Name Freq PRN Reason Stop Dose Admin Sodium Chloride 1,000 mls @ 100 mls/hr 02/03/24 02:30 02/03/24 02:42 Sodium Chloride 0.9% 1000 Ml IV 03/04/24 02:29 100 mls/hr .Q10H ALANIS Administration Discontinued Medications Generic Name Dose Route Start Last Admin Trade Name Freq PRN Reason Stop Dose Admin Ketorolac Tromethamine 30 mg 02/03/24 02:27 02/03/24 02:40 Ketorolac Tromethamine 30 Mg/Ml Inj IV 02/03/24 02:28 30 mg STAT ONE Administration Ketorolac Tromethamine Confirm 02/03/24 02:40 Ketorolac Tromethamine 30 Mg/Ml Inj Administered 02/03/24 02:41 Dose 30 mg .ROUTE .STK-MED ONE Nitrofurantoin Macrocrystals 100 mg 02/03/24 04:09 02/03/24 04:12 Nitrofurantoin Macro 100 Mg Capsule PO 02/03/24 04:10 100 mg STAT ONE Administration Nitrofurantoin Macrocrystals Confirm 02/03/24 04:12 Nitrofurantoin Macro 100 Mg Capsule Administered 02/03/24 04:13 Dose 100 mg .ROUTE .STK-MED ONE Lab/Rad Data: Laboratory Result Diagrams 02/03/24 02:39 02/03/24 02:39 Laboratory Results 02/03/24 02/03/24 02/03/24 Range/Units 03:35 03:35 02:39 WBC (3.98-10.04) x10^3/uL RBC (3.93-5.22) x10^6/uL Hgb (11.2-15.7) g/dL Hct (34.1-44.9) % MCV (79.4-94.8) fL MCH (25.6-32.2) pg MCHC (32.2-35.5) g/dL RDW (11.7-14.4) % Plt Count (182-369) x10^3/uL MPV (9.4-12.3) fL Gran % (34.0-71.1) % Immature Gran % (Auto) (0.001-0.429) % Nucleat RBC Rel Count (0.00-0.2) % Eos # (Auto) (0.04-0.36) x10^3/uL Immature Gran # (Auto) (0.001-0.031) x10^3u/L Absolute Lymphs (auto) (1.18-3.74) x10^3/uL Absolute Monos (auto) (0.24-0.86) x10^3/uL Absolute Nucleated RBC (0.00-0.012) x10^3u/L Lymphocytes % (19.3-51.7) % Monocytes % (4.7-12.5) % Eosinophils % (0.7-5.8) % Basophils % (0.1-1.2) % Absolute Granulocytes (1.56-6.13) x10^3/uL Basophils # (0.01-0.08) x10^3/uL Sodium (135-145) mmol/L Potassium (3.5-5.1) mmol/L Chloride (98-107) mmol/L Carbon Dioxide (22-30) mmol/L Anion Gap (5-15) MEQ/L BUN (7-17) mg/dL Creatinine (0.52-1.04) mg/dL Estimated GFR ML/MIN Glucose (74-106) mg/dL Calcium (8.4-10.2) mg/dL Total Bilirubin (0.2-1.3) mg/dL AST (14-36) U/L ALT (0-35) U/L Alkaline Phosphatase (38-126) U/L Troponin I < 0.012 (0.000-0.033) ng/mL Serum Total Protein (6.3-8.2) g/dL Albumin (3.5-5.0) g/dL Lipase (23-300) U/L Urine Color Yellow (Yellow) Urine Appearance Cloudy A (Clear) Urine pH 5.5 (4.6-8.0) Ur Specific [place] >=1.030 A (1.005-1.030) Urine Protein Trace A (Negative) Urine Glucose (UA) Negative (Negative) mg/dL Urine Ketones Negative (Negative) Urine Blood Large A (Negative) Urine Nitrite Negative (Negative) Urine Bilirubin Negative (Negative) Urine Urobilinogen 1.0 A (0.2) mg/dL Ur Leukocyte Esterase Small A (Negative) U Hyaline Cast (Auto) NONE SEEN (0-2) /LPF Urine Microscopic RBC 51-100 A (0-5) /HPF Urine Microscopic WBC 11-20 A (0-5) /HPF Ur Epithelial Cells Few (None Seen) /HPF Urine Bacteria Moderate A (None Seen) /HPF Urine Culture Reflexed YES (NO) Urine HCG, Qual NEGATIVE (NEGATIVE) 02/03/24 02/03/24 Range/Units 02:39 02:39 WBC 8.0 (3.98-10.04) x10^3/uL RBC 4.55 (3.93-5.22) x10^6/uL Hgb 12.3 (11.2-15.7) g/dL Hct 38.3 (34.1-44.9) % MCV 84.2 (79.4-94.8) fL MCH 27.0 (25.6-32.2) pg MCHC 32.1 L (32.2-35.5) g/dL RDW 12.1 (11.7-14.4) % Plt Count 314 (182-369) x10^3/uL MPV 9.9 (9.4-12.3) fL Gran % 47.8 (34.0-71.1) % Immature Gran % (Auto) 0.1 (0.001-0.429) % Nucleat RBC Rel Count 0.0 (0.00-0.2) % Eos # (Auto) 0.07 (0.04-0.36) x10^3/uL Immature Gran # (Auto) 0.01 (0.001-0.031) x10^3u/L Absolute Lymphs (auto) 3.52 (1.18-3.74) x10^3/uL Absolute Monos (auto) 0.52 (0.24-0.86) x10^3/uL Absolute Nucleated RBC 0.00 (0.00-0.012) x10^3u/L Lymphocytes % 44.2 (19.3-51.7) % Monocytes % 6.5 (4.7-12.5) % Eosinophils % 0.9 (0.7-5.8) % Basophils % 0.5 (0.1-1.2) % Absolute Granulocytes 3.81 (1.56-6.13) x10^3/uL Basophils # 0.04 (0.01-0.08) x10^3/uL Sodium 142 (135-145) mmol/L Potassium 3.9 (3.5-5.1) mmol/L Chloride 106 (98-107) mmol/L Carbon Dioxide 24 (22-30) mmol/L Anion Gap 15.2 H (5-15) MEQ/L BUN 12 (7-17) mg/dL Creatinine 0.82 (0.52-1.04) mg/dL Estimated GFR 105.6 ML/MIN Glucose 101 (74-106) mg/dL Calcium 9.3 (8.4-10.2) mg/dL Total Bilirubin 0.50 (0.2-1.3) mg/dL AST 28 (14-36) U/L ALT 35 (0-35) U/L Alkaline Phosphatase 60 (38-126) U/L Troponin I (0.000-0.033) ng/mL Serum Total Protein 7.6 (6.3-8.2) g/dL Albumin 4.4 (3.5-5.0) g/dL Lipase 61 (23-300) U/L Urine Color (Yellow) Urine Appearance (Clear) Urine pH (4.6-8.0) Ur Specific [place] (1.005-1.030) Urine Protein (Negative) Urine Glucose (UA) (Negative) mg/dL Urine Ketones (Negative) Urine Blood (Negative) Urine Nitrite (Negative) Urine Bilirubin (Negative) Urine Urobilinogen (0.2) mg/dL Ur Leukocyte Esterase (Negative) U Hyaline Cast (Auto) (0-2) /LPF Urine Microscopic RBC (0-5) /HPF Urine Microscopic WBC (0-5) /HPF Ur Epithelial Cells (None Seen) /HPF Urine Bacteria (None Seen) /HPF Urine Culture Reflexed (NO) Urine HCG, Qual (NEGATIVE) - Progress Progress: improved Progress Note: 18-year-old female presents to emergency department for evaluation of right upper quadrant pain. Physical exam reveals some tenderness of the right upper quadrant. Laboratory workup essentially nonremarkable however a urinary tract infection was identified in the urinalysis. Patient received an oral dose of Macrobid. A prescription for the same forwarded to patient's pharmacy. A prescription for Toradol also forwarded to patient's pharmacy for pain control. Patient advised to follow-up with a primary care doctor within 48 hours for reevaluation. May consider outpatient HIDA scan to further evaluate the functioning of the gallbladder. They agree to follow-up with primary care doctor as discussed. Mother at bedside. They voiced no other complaints or concerns at this time. Portions of this note were created with voice recognition technology. There may be grammatical, spelling, punctuation or sound alike errors Complexity of problem addressed is moderate acute complicated. No critical care time. Complexity of data reviewed and analyzed is moderate. Test ordered chest reviewed results analyzed and correlated clinically with history and physical exam. Risk of complication and or risk of morbidity/mortality of patient management is moderate. A prescription for Macrobid and Toradol forwarded to patient's pharmacy. Vitals stable. Time spent to discharge patient is approximately 15 minutes. Plan of care established for shared decision making. No social determinants of health present to impede follow-up. Work note provided. Patient may return to work on Thursday as long as symptoms have resolved Portions of this note were created with voice recognition technology. There may be grammatical, spelling, punctuation or sound alike errors 02/03/24 04:20 \ Counseled pt/family regarding: lab results, diagnosis, need for follow-up, rad results - Departure Departure Disposition: Home Clinical Impression: Urinary tract infection, Right upper quadrant abdominal pain Condition: Stable Critical Care Time: No Referrals: KHRIS BENTLEY FNP [Primary Care Provider] - Follow up/PCP as directed Additional Instructions: May consider outpatient HIDA scan to further evaluate the functioning of the gallbladder. Discharge/Care Plan MARIA DEL CARMENYAREDLITO NILES was seen on 02/03/24 in the Emergency Room. The patient was counseled regarding Diagnosis,Lab results, Imaging studies, need for follow up and when to return to the Emergency Room. Prescriptions given: Discharge Note I have spoken with the patient and/or caregivers. I have explained the patient's condition, diagnosis and treatment plan based on the information available to me at this time. I have answered the patient's and/or caregiver's questions and addressed any concerns. The patient and/or caregivers have as good understanding of the patient's diagnosis, condition and treatment plan as can be expected at this point. The vital signs have been stable. The patient's condition is stable and appropriate for discharge from the emergency department. The patient will pursue further outpatient evaluation with the primary care physician or other designated or consulting physician as outlined in the discharge instructions. The patient and/or caregivers are agreeable to this plan of care and follow-up instructions have been explained in detail. The patient and/or caregivers have received these instruction. The patient/and or caregivers are aware that any significant change in condition or worsening of symptoms should prompt an immediate return to this or the closest emergency department or call 911. Forms: Work/School Release Form Prescriptions: Nitrofurantoin Macro 100 mg [Macrobid 100MG Capsule] 100 mg PO BID 7 Days #14 cap Ketorolac Trometh 10 mg Tab [TORAdol 10 MG TABLET] 10 mg PO TID 5 Days #15 tablet
[2024-02-03 02:40] VITALS: TEMP 97.3
[2024-02-03] MEDS ORDERED: TORAdol 30 mg Injection ONE (02:40)
[2024-02-03] MEDS: TORAdol 30 mg Injection IV ONE (02:40)
[2024-02-03] MEDS ORDERED: Sodium Chloride 0.9% 1000 ML 1,000 ML ONE (02:40)
[2024-02-03 02:42] LABS: Absolute Neutrophil Ct (ANC) 3.81 x10^3/uL (1.56-6.13); BASOPHIL % 0.5 % (0.1-1.2); Basophil (Absolute #) 0.04 x10^3/uL (0.01-0.08); Eosinophil % 0.9 % (0.7-5.8); Eosinophil (Absolute #) 0.07 x10^3/uL (0.04-0.36); Hematocrit 38.3 % (34.1-44.9); Hemoglobin 12.3 g/dL (11.2-15.7); IMMATURE GRAN # 0.01 x10^3u/L (0.001-0.031); IMMATURE GRAN % 0.1 % (0.001-0.429); Lymphocyte (Absolute #) 3.52 x10^3/uL (1.18-3.74); Lymphocytes % 44.2 % (19.3-51.7); Mean Cell Volume 84.2 fL (79.4-94.8); Mean Corpuscular Hgb Concent. 32.1 g/dL (32.2-35.5); Mean Platelet Volume 9.9 fL (9.4-12.3); Monocyte (Absolute #) 0.52 x10^3/uL (0.24-0.86); Monocytes % 6.5 % (4.7-12.5); Neutrophil % 47.8 % (34.0-71.1); Platelet Count 314 x10^3/uL (182-369); Red Blood Count 4.55 x10^6/uL (3.93-5.22); Red Cell Distribution Width 12.1 % (11.7-14.4)
[2024-02-03] MEDS: Sodium Chloride 0.9% 1000 ML 1,000 ML IV SCH (02:42)
[2024-02-03 02:56] LABS: ALBUMIN 4.4 g/dL (3.5-5.0); ANION GAP 15.2 MEQ/L (5-15); BILIRUBIN,TOTAL 0.5 mg/dL (0.2-1.3); Calcium 9.3 mg/dL (8.4-10.2); Creatinine 1 0.82 mg/dL (0.52-1.04); EST GLOMERULAR FILTRATION RATE 105.6 ML/MIN; Potassium 3.9 mmol/L (3.5-5.1); Total Protein 7.6 g/dL (6.3-8.2)
[2024-02-03 03:40] LABS: HCG URINE TEST NEGATIVE (NEGATIVE)
--- NOTE | 2024-02-03 03:54 | XRAY ---
CLINICAL HISTORY: pain COMPARISON: CT 01/05/2024 TECHNIQUE: CT of the abdomen and pelvis was performed with axial images as well as sagittal and coronal reconstruction images without intravenous contrast. One of the following dose reduction techniques were utilized for this exam: Automated exposure control, adjustment of the mA and/or kV according to patient size, and use of iterative reconstruction. FINDINGS: The liver is average in size, it shows normal morphology and appears unremarkable with no intrahepatic or extrahepatic bile duct dilation. Gall bladder appears normal with wall thickness. No radio-opaque calculus or pericholecystic fluid was identified. Common bile appears normal. Unremarkable appearing pancreas. No pancreatic mass or ductal dilatation is seen. Unremarkable appearing spleen. The adrenal glands are normal. The kidneys appear unremarkable with no stones or hydronephrosis. The ureters are normal with no stones. The bladder is unremarkable with no stones. Unremarkable uterus. The stationary course of the small umbilical hernia contains fat. Unremarkable abdominal aorta without specific evidence of aneurysm or dissection. The stomach appears unremarkable. Unremarkable appearing duodenum. The appendix is unremarkable. No evidence of fat stranding. The colon is non-distended. No free air and no ascites. No free intraperitoneal air is seen. Bones appear grossly unremarkable. Clear scanned lung bases. No changes since the last study. IMPRESSION: 1. Stationary course of the small umbilical hernia containing fat. 2. Otherwise, unremarkable non-contrast CT abdomen and pelvis. 3. No changes since the last study. Electronically Signed by: Scot Jules MD. (02/03/2024 03:40:39 EDT)
[2024-02-03 03:55] LABS: Appearance Cloudy (Clear); Bacteria Moderate /HPF (None Seen); Bilirubin Negative (Negative); Blood Large (Negative); Epithelial Cells Few /HPF (None Seen); Glucose, Urine Negative (Negative); Hyaline Casts NONE SEEN /LPF (0-2); Ketones Negative (Negative); Leukocyte Esterase Small (Negative); Nitrite Negative (Negative); Ph 5.5 (4.6-8.0); Protein,Urine Dip Trace (Negative); RBC 51-100 /HPF (0-5); Specific Gravity >=1.030 (1.005-1.030)
[2024-02-03] MEDS: Macrobid 100MG Capsule PO ONE (04:12)
[2024-02-03] MEDS ORDERED: Macrobid 100MG Capsule ONE (04:12)
[2024-02-03 04:38] VITALS: BP 107/70; PULSE 79; RESP 18; O2SAT 97
== END 2024-02-03 04:38 | disposition home or self-care (01) ==
LOC: ED 02:10
DX: N39.0 Urinary tract infection, site not specified (principal); R10.11 Right upper quadrant pain; Z79.899 Other long term (current) drug therapy
CPT/HCPCS: 36000; 36415; 74176; 80053; 81001; 81025; 83690; 84484; 85025; 87086; 96374; 99284; J1885; A9270-GY

== ENCOUNTER → 2024-04-10 | Emergency (ER) | payer MEDICAID | END | disposition left against medical advice (07) | LOC: ED 22:30 | DX: Z53.21 Procedure and treatment not carried out due to patient leaving prior to being seen by health care provider (principal) ==

== ENCOUNTER 2024-06-12 13:28 | Emergency (ER) | payer MEDICAID ==
[2024-06-12 13:51] VITALS: TEMP 97.2
--- NOTE | 2024-06-12 14:27 | ERPHSYRPT ---
- History of Present Illness Time Seen by Provider: 06/12/24 14:00 Historian: patient Exam Limitations: no limitations Patient Subjective Stated Complaint: pt here from work today with dizziness that is now gone, nasuea, cough for a couple days, and right upper quad pain. Triage Nursing Assessment: pt alert, walked in, resp easy, skin w/d/p. moves all ext well, abd soft and nontender to palpated Physician History: 19-year-old female no significant past medical history presents to our ED for evaluation of epigastric pain, diarrhea and nausea, no vomiting patient states her symptoms started today. Patient was at work when her pain started. Pain was associated with transient dizziness. The dizziness has since resolved. Patient is still mildly nauseous. No active abdominal pain. Pain is described as an intermittent sharp pain. Patient has an occasional cough. No coughing observed during my exam. Patient reports that her roommate is "sick". Roommate reportedly has a cough and is wheezing. She has yet to follow-up for medical evaluation. Patient otherwise feels well. She voices no other complaints or concerns at this time. pt here from work today with dizziness that is now gone, nasuea, cough for a couple days, and right upper quad pain. Timing/Duration: today Activities at Onset: none Quality: aching Abdominal Pain Onset Location: epigastric Pain Radiation: no radiation Severity of Pain-Max: moderate Severity of Pain-Current: none Modifying Factors: Improves With: nothing Associated Symptoms: diarrhea, nausea Previous symptoms: no prior history Allergies/Adverse Reactions: ciprofloxacin [From Cipro] Adverse Reaction (Verified 06/12/24 13:49) Rash Hx Tetanus, Diphtheria Vaccination/Date Given: No Hx Influenza Vaccination/Date Given: No Hx Pneumococcal Vaccination/Date Given: No Immunizations Up to Date: Yes Travel Risk - International Travel Have you traveled outside of the country in past 3 weeks: No - Emerging Infectious Disease Are you exhibiting symptoms associated with any current EIDs: Yes Symptoms: Abdominal Pain, Cough: New Onset - Review of Systems Constitutional: No Symptoms, No Fever, No Chills Eyes: No Symptoms Ears, Nose, & Throat: No Symptoms Respiratory: No Symptoms, No Cough, No Dyspnea Cardiac: No Symptoms, No Chest Pain, No Edema, No Syncope Abdominal/Gastrointestinal: No Symptoms, No Abdominal Pain, No Nausea, No Vomiting, No Diarrhea Genitourinary Symptoms: No Symptoms, No Dysuria Musculoskeletal: No Symptoms, No Back Pain, No Neck Pain Skin: No Symptoms, No Rash Neurological: No Symptoms, No Dizziness, No Focal Weakness, No Sensory Changes Psychological: No Symptoms Endocrine: No Symptoms Hematologic/Lymphatic: No Symptoms Immunological/Allergic: No Symptoms All Other Systems: Reviewed and Negative - Past Medical History Pertinent Past Medical History: Yes Neurological History: Migraines ENT History: No Pertinent History Cardiac History: No Pertinent History Respiratory History: No Pertinent History Endocrine Medical History: No Pertinent History Musculoskeletal History: Fractures GI Medical History: No Pertinent History, Other History: No Pertinent History Psycho-Social History: Depression Female Reproductive Disorders: Menstrual Problems Other Medical History: pcos. fatty liver - Past Surgical History Past Surgical History: Yes Neuro Surgical History: No Pertinent History Cardiac: No Pertinent History Respiratory: No Pertinent History Gastrointestinal: No Pertinent History Genitourinary: No Pertinent History Musculoskeletal: No Pertinent History Female Surgical History: No Pertinent History - Female History Hx Last Menstrual Period: unsure Hx Now: No (per pt) - Social History Smoking Status: Never smoker Exposure to second hand smoke: No Drug Use: none - Social Determinants of Health Will the patient participate in the screening: Declined to provide - Nursing Vital Signs Nursing Vital Signs: Initial Vital Signs Temperature 97.2 F 06/12/24 13:50 Pulse Rate 97 H 06/12/24 13:50 Respiratory Rate 18 06/12/24 13:50 Blood Pressure 126/68 06/12/24 13:50 O2 Sat by Pulse Oximetry 100 06/12/24 13:50 Pain Scale Pain Intensity 4 - Physical Exam General Appearance: no apparent distress, alert Eye Exam: PERRL/EOMI, eyes nml inspection Ears, Nose, Throat Exam: normal ENT inspection, pharynx normal, moist mucous membranes Neck Exam: normal inspection, full range of motion Respiratory Exam: normal breath sounds, lungs clear, airway intact, No respiratory distress Cardiovascular Exam: regular rate/rhythm, normal heart sounds, normal peripheral pulses Gastrointestinal/Abdomen Exam: soft, tenderness, other (Mild epigastric tenderness), No mass Back Exam: normal inspection, normal range of motion, No CVA tenderness, No vertebral tenderness Extremity Exam: normal inspection, normal range of motion, pelvis stable Neurologic Exam: alert, oriented x 3, cooperative, normal mood/affect, sensation nml, No motor deficits Skin Exam: normal color, warm, dry Lymphatic Exam: No adenopathy SpO2 Interpretation: normal SpO2: 100 O2 Delivery: Room Air - Course Nursing assessment & vital signs reviewed: Yes - CT Exams Abdomen/Pelvis CT Interpretation: Tele-radiologist Report (Fat-containing umbilical hernia) Ordered Tests: Active Orders 24 hr Category Date Time Status IV Insertion STAT Care 06/12/24 14:18 Active ABDOMEN AND PELVIS W/0 CONTRAS [CT] Stat Exams 06/12/24 14:49 Completed CBC W DIFF Stat Lab 06/12/24 14:30 Completed CMP Stat Lab 06/12/24 14:30 Completed CULTURE,URINE Stat Lab 06/12/24 14:22 Received HCG QUALITATIVE, URINE Stat Lab 06/12/24 14:22 Completed LIPASE Stat Lab 06/12/24 14:30 Completed TROPONIN Q4H Lab 06/12/24 14:30 Completed TROPONIN Q4H Lab 06/12/24 18:30 Ordered TROPONIN Q4H Lab 06/12/24 22:30 Ordered UA W/RFX UR CULTURE Stat Lab 06/12/24 14:22 Completed Medication Summary Generic Name Dose Route Start Last Admin Trade Name Freq PRN Reason Stop Dose Admin Ceftriaxone Sodium 1 gm in 100 mls @ 200 mls/hr 06/12/24 15:39 Rocephin 1 Gm / 100 Ml Nacl IV 06/12/24 16:08 STAT ONE Discontinued Medications Generic Name Dose Route Start Last Admin Trade Name Freq PRN Reason Stop Dose Admin Sodium Chloride 1,000 mls @ 999 mls/hr 06/12/24 14:18 06/12/24 15:17 Sodium Chloride 0.9% 1000 Ml IV 06/12/24 15:18 999 mls/hr .Q1H1M STA Administration Sodium Chloride Confirm 06/12/24 15:14 Sodium Chloride 0.9% 1000 Ml Administered 06/12/24 15:15 Dose 1,000 mls @ ud .ROUTE .STK-MED ONE Ketorolac Tromethamine 30 mg 06/12/24 14:18 06/12/24 15:20 Ketorolac Tromethamine 30 Mg/Ml Inj IV 06/12/24 14:19 30 mg STAT ONE Administration Ketorolac Tromethamine Confirm 06/12/24 15:14 Ketorolac Tromethamine 30 Mg/Ml Inj Administered 06/12/24 15:15 Dose 30 mg .ROUTE .STK-MED ONE Ondansetron HCl 4 mg 06/12/24 14:18 06/12/24 15:18 Ondansetron Hcl 4 Mg/2 Ml Vial IV 06/12/24 14:19 4 mg STAT ONE Administration Ondansetron HCl Confirm 06/12/24 15:14 Ondansetron Hcl 4 Mg/2 Ml Vial Administered 06/12/24 15:15 Dose 4 mg .ROUTE .STK-MED ONE Pantoprazole Sodium 40 mg 06/12/24 15:45 Pantoprazole 40 Mg Vial IV 06/12/24 15:46 STAT ONE Lab/Rad Data: Laboratory Result Diagrams 06/12/24 14:30 06/12/24 14:30 Laboratory Results 06/12/24 06/12/24 06/12/24 Range/Units 14:40 14:30 14:30 WBC (3.98-10.04) x10^3/uL RBC (3.93-5.22) x10^6/uL Hgb (11.2-15.7) g/dL Hct (34.1-44.9) % MCV (79.4-94.8) fL MCH (25.6-32.2) pg MCHC (32.2-35.5) g/dL RDW (11.7-14.4) % Plt Count (182-369) x10^3/uL MPV (9.4-12.3) fL Gran % (34.0-71.1) % Immature Gran % (Auto) (0.001-0.429) % Nucleat RBC Rel Count (0.00-0.2) % Eos # (Auto) (0.04-0.36) x10^3/uL Immature Gran # (Auto) (0.001-0.031) x10^3u/L Absolute Lymphs (auto) (1.18-3.74) x10^3/uL Absolute Monos (auto) (0.24-0.86) x10^3/uL Absolute Nucleated RBC (0.00-0.012) x10^3u/L Lymphocytes % (19.3-51.7) % Monocytes % (4.7-12.5) % Eosinophils % (0.7-5.8) % Basophils % (0.1-1.2) % Absolute Granulocytes (1.56-6.13) x10^3/uL Basophils # (0.01-0.08) x10^3/uL Sodium 141 (135-145) mmol/L Potassium 4.2 (3.5-5.1) mmol/L Chloride 103 (98-107) mmol/L Carbon Dioxide 26 (22-30) mmol/L Anion Gap 16.6 H (5-15) MEQ/L BUN 12 (7-17) mg/dL Creatinine 0.71 (0.52-1.04) mg/dL Estimated GFR 124.8 ML/MIN Glucose 86 (74-106) mg/dL Calcium 9.8 (8.4-10.2) mg/dL Total Bilirubin 0.70 (0.2-1.3) mg/dL AST 29 (14-36) U/L ALT 27 (0-35) U/L Alkaline Phosphatase 70 (38-126) U/L Troponin I < 0.012 (0.000-0.033) ng/mL Serum Total Protein 7.6 (6.3-8.2) g/dL Albumin 4.6 (3.5-5.0) g/dL Lipase 42 (23-300) U/L Urine Color (Yellow) Urine Appearance (Clear) Urine pH (4.6-8.0) Ur Specific Egnar (1.005-1.030) Urine Protein (Negative) Urine Glucose (UA) (Negative) mg/dL Urine Ketones (Negative) Urine Blood (Negative) Urine Nitrite (Negative) Urine Bilirubin (Negative) Urine Urobilinogen (0.2) mg/dL Ur Leukocyte Esterase (Negative) U Hyaline Cast (Auto) (0-2) /LPF Urine Microscopic RBC (0-5) /HPF Urine Microscopic WBC (0-5) /HPF Ur Epithelial Cells (None Seen) /HPF Urine Bacteria (None Seen) /HPF Urine Culture Reflexed (NO) Urine HCG, Qual (NEGATIVE) Influenza Type A Ag NEGATIVE (NEGATIVE) Influenza Type B Ag NEGATIVE (NEGATIVE) RSV (PCR) NEGATIVE (NEGATIVE) SARS-CoV-2 (PCR) NEGATIVE (NEGATIVE) 06/12/24 06/12/24 06/12/24 Range/Units 14:30 14:22 14:22 WBC 10.1 H (3.98-10.04) x10^3/uL RBC 4.87 (3.93-5.22) x10^6/uL Hgb 12.2 (11.2-15.7) g/dL Hct 38.1 (34.1-44.9) % MCV 78.2 L (79.4-94.8) fL MCH 25.1 L (25.6-32.2) pg MCHC 32.0 L (32.2-35.5) g/dL RDW 14.6 H (11.7-14.4) % Plt Count 334 (182-369) x10^3/uL MPV 9.9 (9.4-12.3) fL Gran % 62.7 (34.0-71.1) % Immature Gran % (Auto) 0.4 (0.001-0.429) % Nucleat RBC Rel Count 0.0 (0.00-0.2) % Eos # (Auto) 0.06 (0.04-0.36) x10^3/uL Immature Gran # (Auto) 0.04 H (0.001-0.031) x10^3u/L Absolute Lymphs (auto) 2.99 (1.18-3.74) x10^3/uL Absolute Monos (auto) 0.63 (0.24-0.86) x10^3/uL Absolute Nucleated RBC 0.00 (0.00-0.012) x10^3u/L Lymphocytes % 29.6 (19.3-51.7) % Monocytes % 6.2 (4.7-12.5) % Eosinophils % 0.6 L (0.7-5.8) % Basophils % 0.5 (0.1-1.2) % Absolute Granulocytes 6.34 H (1.56-6.13) x10^3/uL Basophils # 0.05 (0.01-0.08) x10^3/uL Sodium (135-145) mmol/L Potassium (3.5-5.1) mmol/L Chloride (98-107) mmol/L Carbon Dioxide (22-30) mmol/L Anion Gap (5-15) MEQ/L BUN (7-17) mg/dL Creatinine (0.52-1.04) mg/dL Estimated GFR ML/MIN Glucose (74-106) mg/dL Calcium (8.4-10.2) mg/dL Total Bilirubin (0.2-1.3) mg/dL AST (14-36) U/L ALT (0-35) U/L Alkaline Phosphatase (38-126) U/L Troponin I (0.000-0.033) ng/mL Serum Total Protein (6.3-8.2) g/dL Albumin (3.5-5.0) g/dL Lipase (23-300) U/L Urine Color Yellow (Yellow) Urine Appearance Clear (Clear) Urine pH 5.5 (4.6-8.0) Ur Specific Egnar 1.020 (1.005-1.030) Urine Protein Negative (Negative) Urine Glucose (UA) Negative (Negative) mg/dL Urine Ketones Negative (Negative) Urine Blood Negative (Negative) Urine Nitrite Negative (Negative) Urine Bilirubin Negative (Negative) Urine Urobilinogen 0.2 (0.2) mg/dL Ur Leukocyte Esterase Moderate A (Negative) U Hyaline Cast (Auto) NONE SEEN (0-2) /LPF Urine Microscopic RBC 0-2 (0-5) /HPF Urine Microscopic WBC 21-50 A (0-5) /HPF Ur Epithelial Cells Rare (None Seen) /HPF Urine Bacteria Rare A (None Seen) /HPF Urine Culture Reflexed YES (NO) Urine HCG, Qual NEGATIVE (NEGATIVE) Influenza Type A Ag (NEGATIVE) Influenza Type B Ag (NEGATIVE) RSV (PCR) (NEGATIVE) SARS-CoV-2 (PCR) (NEGATIVE) - Progress Progress: improved Progress Note: 19-year-old female presents to emergency department for evaluation of epigastric pain diarrhea nausea. Physical exam reveals some epigastric tenderness. Laboratory workup essentially nonremarkable. Lipase within normal limits. CT abdomen pelvis reveals a fat-containing umbilical hernia. Patient referred to general surgery for this hernia. UA significant for urinary tract infection. Patient received a IV dose of Rocephin in our ED. A prescription for Keflex forwarded to patient's pharmacy. For her epigastric pain she received IV Protonix. A prescription for Protonix forwarded to patient's pharmacy. No indication for further workup at this time. Patient reassessed. She is asymptomatic. Pain resolved. Patient agrees to follow-up with her primary care doctor within 48 hours for reevaluation. She voices no other complaints or concerns at this time. Portions of this note were created with voice recognition technology. There may be grammatical, spelling, punctuation or sound alike errors Complexity of problem addressed is moderate acute complicated. No critical care time. Complexity of data reviewed and analyzed is moderate. Test ordered test reviewed results analyzed and correlated clinically with history and physical exam. Risk of complication and or risk of morbidity/mortality of patient management is moderate. A prescription for Protonix and Keflex forwarded to patient's pharmacy. Vital stable. Time spent to discharge patient is approximately 10 minutes. Plan of care established for shared decision making. No social determinants of health present to impede follow-up. Portions of this note were created with voice recognition technology. There may be grammatical, spelling, punctuation or sound alike errors 06/12/24 15:47 Counseled pt/family regarding: lab results, diagnosis, need for follow-up, rad results - Departure Departure Disposition: Home Clinical Impression: Nausea, Epigastric pain, Diarrhea, UTI (urinary tract infection), Umbilical hernia Condition: Stable Critical Care Time: No Referrals: KHRIS BENTLEY FNP [Primary Care Provider] - Follow up/PCP as directed MACK AUSTIN [ACTIVE STAFF] - Follow up/PCP as directed Additional Instructions: Discharge/Care Plan LITO CHAMPION was seen on 06/12/24 in the Emergency Room. The patient was counseled regarding Diagnosis,Lab results, Imaging studies, need for follow up and when to return to the Emergency Room. Prescriptions given: Discharge Note I have spoken with the patient and/or caregivers. I have explained the patient's condition, diagnosis and treatment plan based on the information available to me at this time. I have answered the patient's and/or caregiver's questions and addressed any concerns. The patient and/or caregivers have as good understanding of the patient's diagnosis, condition and treatment plan as can be expected at this point. The vital signs have been stable. The patient's condition is stable and appropriate for discharge from the emergency department. The patient will pursue further outpatient evaluation with the primary care physician or other designated or consulting physician as outlined in the discharge instructions. The patient and/or caregivers are agreeable to this plan of care and follow-up instructions have been explained in detail. The patient and/or caregivers have received these instruction. The patient/and or caregivers are aware that any significant change in condition or worsening of symptoms should prompt an immediate return to this or the closest emergency department or call 911. Prescriptions: Cephalexin Mh 500 mg [Keflex 500 mg] 500 mg PO TID #21 cap PANTOPRAZOLE 40 mg Tablet [Protonix 40MG Tablet] 40 mg PO QAM 14 Days #14 tab
[2024-06-12 14:28] LABS: HCG URINE TEST NEGATIVE (NEGATIVE)
[2024-06-12 14:30] LABS: Appearance Clear (Clear); Bacteria Rare /HPF (None Seen); Bilirubin Negative (Negative); Blood Negative (Negative); Epithelial Cells Rare /HPF (None Seen); Glucose, Urine Negative (Negative); Hyaline Casts NONE SEEN /LPF (0-2); Ketones Negative (Negative); Leukocyte Esterase Moderate (Negative); Nitrite Negative (Negative); Ph 5.5 (4.6-8.0); Protein,Urine Dip Negative (Negative); RBC 0-2 /HPF (0-5); Urobilinogen 0.2 mg/dL (0.2); WBC 21-50 /HPF (0-5)
[2024-06-12 14:50] LABS: Absolute Neutrophil Ct (ANC) 6.34 x10^3/uL (1.56-6.13); BASOPHIL % 0.5 % (0.1-1.2); Basophil (Absolute #) 0.05 x10^3/uL (0.01-0.08); Eosinophil % 0.6 % (0.7-5.8); Eosinophil (Absolute #) 0.06 x10^3/uL (0.04-0.36); Hematocrit 38.1 % (34.1-44.9); Hemoglobin 12.2 g/dL (11.2-15.7); IMMATURE GRAN # 0.04 x10^3u/L (0.001-0.031); IMMATURE GRAN % 0.4 % (0.001-0.429); Lymphocyte (Absolute #) 2.99 x10^3/uL (1.18-3.74); Lymphocytes % 29.6 % (19.3-51.7); Mean Cell Volume 78.2 fL (79.4-94.8); Mean Corpuscular Hemoglobin 25.1 pg (25.6-32.2); Mean Platelet Volume 9.9 fL (9.4-12.3); Monocyte (Absolute #) 0.63 x10^3/uL (0.24-0.86); Monocytes % 6.2 % (4.7-12.5); Neutrophil % 62.7 % (34.0-71.1); Platelet Count 334 x10^3/uL (182-369); Red Blood Count 4.87 x10^6/uL (3.93-5.22); Red Cell Distribution Width 14.6 % (11.7-14.4); White Blood Count 10.1 x10^3/uL (3.98-10.04)
[2024-06-12 15:04] LABS: ALBUMIN 4.6 g/dL (3.5-5.0); ANION GAP 16.6 MEQ/L (5-15); BILIRUBIN,TOTAL 0.7 mg/dL (0.2-1.3); Calcium 9.8 mg/dL (8.4-10.2); Creatinine 1 0.71 mg/dL (0.52-1.04); EST GLOMERULAR FILTRATION RATE 124.8 ML/MIN; Potassium 4.2 mmol/L (3.5-5.1); Total Protein 7.6 g/dL (6.3-8.2)
[2024-06-12] MEDS ORDERED: Zofran 4 MG/2 ML VIAL ONE (15:14)
[2024-06-12] MEDS ORDERED: TORAdol 30 mg Injection ONE (15:14)
[2024-06-12] MEDS ORDERED: Sodium Chloride 0.9% 1000 ML 1,000 ML ONE (15:14)
[2024-06-12] MEDS: Sodium Chloride 0.9% 1000 ML 1,000 ML IV STA (15:17)
[2024-06-12] MEDS: Zofran 4 MG/2 ML VIAL IV ONE (15:18)
[2024-06-12] MEDS: TORAdol 30 mg Injection IV ONE (15:20)
[2024-06-12 15:26] LABS: INFLUENZA A NEGATIVE (NEGATIVE); INFLUENZA B NEGATIVE (NEGATIVE); RESPIRATORY SYNCTIAL VIRUS NEGATIVE (NEGATIVE); SARS-CoV-2 Xpert Express NEGATIVE (NEGATIVE)
[2024-06-12 15:28] VITALS: PULSE 79; RESP 18
--- NOTE | 2024-06-12 15:30 | XRAY ---
CLINICAL HISTORY: pain COMPARISON: 02/03/2024 CT. TECHNIQUE: CT of the abdomen and pelvis was performed with axial images as well as sagittal and coronal reconstruction images without intravenous contrast. One of the following dose reduction techniques were utilized for this exam: Automated exposure control, adjustment of the mA and/or kV according to patient size, and use of iterative reconstruction. CTDI 35.19, DLP 1960.03 FINDINGS: The liver is average in size, it shows normal morphology and appears unremarkable with no intrahepatic or extrahepatic bile duct dilation. Gall bladder appears normal with wall thickness. No radio-opaque calculus or pericholecystic fluid was identified. Common bile appears normal. Unremarkable appearing pancreas. No pancreatic mass or ductal dilatation is seen. Unremarkable appearing spleen. The adrenal glands are normal. The kidneys appear unremarkable with no stones or hydronephrosis. The ureters are normal with no stones. The bladder is unremarkable with no stones. Unremarkable uterus. The stationary course of the small umbilical hernia contains fat passing through defect 20mm . Unremarkable abdominal aorta without specific evidence of aneurysm or dissection. The stomach appears unremarkable. Unremarkable appearing duodenum. The appendix is unremarkable. No evidence of fat stranding. The colon is non-distended. No free air and no ascites. No free intraperitoneal air is seen. Bones appear grossly unremarkable. Clear scanned lung bases. No changes since the last study. IMPRESSION: 1. Stationary course of the small umbilical hernia containing fat. 2. Otherwise, unremarkable non-contrast CT abdomen and pelvis. 3. No changes since the last study. Electronically Signed by: Scot Jules MD. (06/12/2024 15:25:07 EST)
[2024-06-12] MEDS ORDERED: ROCEPHIN 1 GM / 100 ML NaCl 1 GM/100 ML IVPB IV ONE (15:46)
[2024-06-12] MEDS ORDERED: PROTONIX 40 MG IV IV ONE (15:46)
[2024-06-12] MEDS: ROCEPHIN 1 GM / 100 ML NaCl 1 GM/100 ML IVPB IV ONE (15:49)
[2024-06-12] MEDS: PROTONIX 40 MG IV IV ONE (15:49)
[2024-06-12 16:03] VITALS: BP 129/76; O2SAT 99
== END 2024-06-12 16:28 | disposition home or self-care (01) ==
LOC: ED 13:28
DX: N39.0 Urinary tract infection, site not specified (principal); R11.0 Nausea; R10.13 Epigastric pain; R19.7 Diarrhea, unspecified; K42.9 Umbilical hernia without obstruction or gangrene; Z79.899 Other long term (current) drug therapy
CPT/HCPCS: 0241U; 36415; 74176; 80053; 81001; 81025; 83690; 84484; 85025; 87086; 96374; 96375; 99284; J0696; J1885; J2405

== ENCOUNTER 2024-07-17 22:43 | Emergency (ER) | payer MEDICAID, OTHER ==
[2024-07-17 23:13] LABS: Absolute Neutrophil Ct (ANC) 5.69 x10^3/uL (1.56-6.13); BASOPHIL % 0.5 % (0.1-1.2); Basophil (Absolute #) 0.05 x10^3/uL (0.01-0.08); Eosinophil % 1.2 % (0.7-5.8); Eosinophil (Absolute #) 0.13 x10^3/uL (0.04-0.36); Hematocrit 38.7 % (34.1-44.9); Hemoglobin 12.6 g/dL (11.2-15.7); IMMATURE GRAN # 0.04 x10^3u/L (0.001-0.031); IMMATURE GRAN % 0.4 % (0.001-0.429); Lymphocyte (Absolute #) 4.11 x10^3/uL (1.18-3.74); Lymphocytes % 38.2 % (19.3-51.7); Mean Cell Volume 79.1 fL (79.4-94.8); Mean Corpuscular Hemoglobin 25.8 pg (25.6-32.2); Mean Corpuscular Hgb Concent. 32.6 g/dL (32.2-35.5); Mean Platelet Volume 9.7 fL (9.4-12.3); Monocyte (Absolute #) 0.74 x10^3/uL (0.24-0.86); Monocytes % 6.9 % (4.7-12.5); Neutrophil % 52.8 % (34.0-71.1); Platelet Count 360 x10^3/uL (182-369); Red Blood Count 4.89 x10^6/uL (3.93-5.22); Red Cell Distribution Width 14.1 % (11.7-14.4); White Blood Count 10.8 x10^3/uL (3.98-10.04)
[2024-07-17 23:20] LABS: Appearance Clear (Clear); Bacteria None Seen /HPF (None Seen); Bilirubin Negative (Negative); Blood Negative (Negative); Epithelial Cells Few /HPF (None Seen); Glucose, Urine Negative (Negative); Hyaline Casts NONE SEEN /LPF (0-2); Ketones Negative (Negative); Leukocyte Esterase Small (Negative); Nitrite Negative (Negative); Protein,Urine Dip Negative (Negative); RBC 0-2 /HPF (0-5); Urobilinogen 0.2 mg/dL (0.2)
--- NOTE | 2024-07-17 23:25 | ERPHSYRPT ---
- History of Present Illness Historian: patient Exam Limitations: no limitations Patient Subjective Stated Complaint: c/o right sided abdominal pain Triage Nursing Assessment: patient brought to ED with c/o right upper abdominal pain that radiates to the right flank and back. Patient rates pain 6/10, states that she has had this pain before when she had a UTI. vitals wnl, skin w/n/d, gait steady, bowel sounds present, slight tenderness with palpation, last BM and Oral intake was today. Patient doesn't appear to be in any distress at this time. Physician History: Patient's had pain like this before. It is in the epigastric area and radiates to the right upper quadrant. It usually starts about an hour or 2 after she eats. She had a recent HIDA scan which showed no stones. She says it is a deep cramping pain. She was on Protonix for this for a month and then she was switched to an H2 rocio. She said that she did not have any problems while she was on either one of them. She has been out of her H2 rocio for about a month. She says that the Protonix seem to probably work a little bit better she is requesting a refill for some of that. She has not had an endoscopy done. Eating makes the symptoms worse. She has not had any nausea or vomiting or diarrhea or fever or chills. She has no other complaints at this time. Allergies/Adverse Reactions: ciprofloxacin [From Cipro] Adverse Reaction (Verified 07/17/24 23:03) Rash Hx Tetanus, Diphtheria Vaccination/Date Given: No Hx Influenza Vaccination/Date Given: No Hx Pneumococcal Vaccination/Date Given: No Travel Risk - International Travel Have you traveled outside of the country in past 3 weeks: No - Emerging Infectious Disease Are you exhibiting symptoms associated with any current EIDs: Yes Symptoms: Abdominal Pain - Review of Systems Constitutional: No Symptoms Eyes: No Symptoms Ears, Nose, & Throat: No Symptoms Respiratory: No Symptoms Cardiac: No Symptoms Genitourinary Symptoms: No Symptoms All Other Systems: Reviewed and Negative - Past Medical History Pertinent Past Medical History: Yes Neurological History: Migraines ENT History: No Pertinent History Cardiac History: No Pertinent History Respiratory History: No Pertinent History Endocrine Medical History: No Pertinent History Musculoskeletal History: Fractures GI Medical History: No Pertinent History, Other History: No Pertinent History Psycho-Social History: Depression Female Reproductive Disorders: Menstrual Problems Other Medical History: pcos. fatty liver - Past Surgical History Past Surgical History: Yes Neuro Surgical History: No Pertinent History Cardiac: No Pertinent History Respiratory: No Pertinent History Gastrointestinal: No Pertinent History Genitourinary: No Pertinent History Musculoskeletal: No Pertinent History Female Surgical History: No Pertinent History - Female History Hx Last Menstrual Period: unsure Hx Now: No - Social History Smoking Status: Current every day smoker Exposure to second hand smoke: No Drug Use: none - Social Determinants of Health Will the patient participate in the screening: Declined to provide - Nursing Vital Signs Nursing Vital Signs: Initial Vital Signs Pulse Rate 94 H 07/17/24 22:52 Respiratory Rate 19 07/17/24 22:52 Blood Pressure 117/92 07/17/24 22:52 O2 Sat by Pulse Oximetry 98 07/17/24 22:52 Pain Scale Pain Intensity 0 - Physical Exam General Appearance: no apparent distress Eye Exam: PERRL/EOMI Neck Exam: normal inspection Respiratory Exam: normal breath sounds Cardiovascular Exam: regular rate/rhythm Gastrointestinal/Abdomen Exam: soft, normal bowel sounds, No tenderness, No distention, No mass Neurologic Exam: alert, oriented x 3, cooperative Skin Exam: normal color, warm, dry SpO2: 99 - Course Nursing assessment & vital signs reviewed: Yes Ordered Tests: Active Orders 24 hr Category Date Time Status IV Insertion STAT Care 07/17/24 23:06 Active CBC W DIFF Stat Lab 07/17/24 23:11 Completed CMP Stat Lab 07/17/24 23:11 Completed CULTURE,URINE Stat Lab 07/17/24 23:04 Received LIPASE Stat Lab 07/17/24 23:11 Completed UA W/RFX UR CULTURE Stat Lab 07/17/24 23:04 Completed Medication Summary Discontinued Medications Generic Name Dose Route Start Last Admin Trade Name Freq PRN Reason Stop Dose Admin Famotidine 20 mg 07/17/24 23:23 07/17/24 23:49 Famotidine 20 Mg/1 Vial IV 07/17/24 23:24 20 mg STAT ONE Administration Morphine Sulfate 4 mg 07/17/24 23:24 07/17/24 23:55 Morphine Sulfate 4 Mg/Ml Injection IV 07/17/24 23:25 4 mg STAT ONE Administration Ondansetron HCl 4 mg 07/17/24 23:24 07/17/24 23:52 Ondansetron Hcl 4 Mg/2 Ml Vial IV 07/17/24 23:25 4 mg STAT ONE Administration Pantoprazole Sodium 40 mg 07/17/24 23:24 07/17/24 23:45 Pantoprazole 40 Mg Vial IV 07/17/24 23:25 40 mg STAT ONE Administration Lab/Rad Data: Laboratory Result Diagrams 07/17/24 23:11 07/17/24 23:11 Laboratory Results 07/17/24 07/17/24 07/17/24 Range/Units 23:11 23:11 23:04 WBC 10.8 H (3.98-10.04) x10^3/uL RBC 4.89 (3.93-5.22) x10^6/uL Hgb 12.6 (11.2-15.7) g/dL Hct 38.7 (34.1-44.9) % MCV 79.1 L (79.4-94.8) fL MCH 25.8 (25.6-32.2) pg MCHC 32.6 (32.2-35.5) g/dL RDW 14.1 (11.7-14.4) % Plt Count 360 (182-369) x10^3/uL MPV 9.7 (9.4-12.3) fL Gran % 52.8 (34.0-71.1) % Immature Gran % (Auto) 0.4 (0.001-0.429) % Nucleat RBC Rel Count 0.0 (0.00-0.2) % Eos # (Auto) 0.13 (0.04-0.36) x10^3/uL Immature Gran # (Auto) 0.04 H (0.001-0.031) x10^3u/L Absolute Lymphs (auto) 4.11 H (1.18-3.74) x10^3/uL Absolute Monos (auto) 0.74 (0.24-0.86) x10^3/uL Absolute Nucleated RBC 0.00 (0.00-0.012) x10^3u/L Lymphocytes % 38.2 (19.3-51.7) % Monocytes % 6.9 (4.7-12.5) % Eosinophils % 1.2 (0.7-5.8) % Basophils % 0.5 (0.1-1.2) % Absolute Granulocytes 5.69 (1.56-6.13) x10^3/uL Basophils # 0.05 (0.01-0.08) x10^3/uL Sodium 142 (135-145) mmol/L Potassium 3.7 (3.5-5.1) mmol/L Chloride 102 (98-107) mmol/L Carbon Dioxide 26 (22-30) mmol/L Anion Gap 17.1 H (5-15) MEQ/L BUN 18 H (7-17) mg/dL Creatinine 0.70 (0.52-1.04) mg/dL Estimated GFR 126.9 ML/MIN Glucose 90 (74-106) mg/dL Calcium 9.6 (8.4-10.2) mg/dL Total Bilirubin 0.40 (0.2-1.3) mg/dL AST 34 (14-36) U/L ALT 37 H (0-35) U/L Alkaline Phosphatase 81 (38-126) U/L Serum Total Protein 8.2 (6.3-8.2) g/dL Albumin 4.8 (3.5-5.0) g/dL Lipase 59 (23-300) U/L Urine Color Yellow (Yellow) Urine Appearance Clear (Clear) Urine pH 6.0 (4.6-8.0) Ur Specific [place] 1.010 (1.005-1.030) Urine Protein Negative (Negative) Urine Glucose (UA) Negative (Negative) mg/dL Urine Ketones Negative (Negative) Urine Blood Negative (Negative) Urine Nitrite Negative (Negative) Urine Bilirubin Negative (Negative) Urine Urobilinogen 0.2 (0.2) mg/dL Ur Leukocyte Esterase Small A (Negative) U Hyaline Cast (Auto) NONE SEEN (0-2) /LPF Urine Microscopic RBC 0-2 (0-5) /HPF Urine Microscopic WBC 11-20 A (0-5) /HPF Ur Epithelial Cells Few (None Seen) /HPF Urine Bacteria None Seen (None Seen) /HPF Urine Culture Reflexed YES (NO) - Progress Progress: improved Progress Note: Patient was stable throughout stay. I get CMP and a CBC and lipase.They were all normal. She has a history of recurrent UTIs so I got a UA as well. I gave her some Protonix in the IV and I went to send her home with a months worth of that. I also gave her 4 mg of morphine and some Zofran. That helped the symptoms.On the differential was pancreatitis, gastroenteritis, duodenal ulcer,GERD. I think the patient probably has GERD or duodenal ulcer. I advised her to get endoscopy. 07/17/24 23:21 07/18/24 01:16 Medical Desision Making - Diagnostic Testing Diagnostic test were ordered, analyzed, and reviewed by me: Yes - Risk of complications Low Risk: Low risk of morbidity from additional dx testing or treatment - Departure Departure Disposition: Home Clinical Impression: GERD (gastroesophageal reflux disease), Epigastric pain Condition: Stable Critical Care Time: No Referrals: KHR[facility]IST [Primary Care Provider] - Follow up/PCP as directed Instructions: Dyspepsia (DC) Prescriptions: PANTOPRAZOLE 40 mg Tablet [Protonix 40MG Tablet] 40 mg PO DAILY #30 tab
[2024-07-17 23:26] LABS: ALBUMIN 4.8 g/dL (3.5-5.0); ANION GAP 17.1 MEQ/L (5-15); BILIRUBIN,TOTAL 0.4 mg/dL (0.2-1.3); Calcium 9.6 mg/dL (8.4-10.2); Creatinine 1 0.7 mg/dL (0.52-1.04); EST GLOMERULAR FILTRATION RATE 126.9 ML/MIN; Potassium 3.7 mmol/L (3.5-5.1); Total Protein 8.2 g/dL (6.3-8.2)
[2024-07-17] MEDS: PROTONIX 40 MG IV IV ONE (23:45)
[2024-07-17] MEDS: Pepcid 20 MG VIAL IV ONE (23:49)
[2024-07-17] MEDS: Zofran 4 MG/2 ML VIAL IV ONE (23:52)
[2024-07-17] MEDS: MORPHINE SULFATE 4 MG INJ IV ONE (23:55)
[2024-07-17 23:59] VITALS: RESP 18
[2024-07-18 01:16] VITALS: O2SAT 99
[2024-07-18 01:25] VITALS: BP 114/71; PULSE 67
== END 2024-07-18 01:36 | disposition home or self-care (01) ==
LOC: ED 22:43
DX: K21.9 Gastro-esophageal reflux disease without esophagitis (principal); R10.13 Epigastric pain; Z79.899 Other long term (current) drug therapy; Z72.0 Tobacco use
CPT/HCPCS: 36415; 80053; 81001; 83690; 85025; 87086; 96374; 96375; 99284; J2270; J2405

== ENCOUNTER 2024-07-18 17:55 | Emergency (ER) | payer OTHER ==
[2024-07-18 19:01] VITALS: RESP 18; TEMP 97.4
--- NOTE | 2024-07-18 19:42 | ERPHSYRPT ---
- History of Present Illness Time Seen by Provider: 07/18/24 19:41 Historian: patient, family Exam Limitations: no limitations Patient Subjective Stated Complaint: pt here for upper right quad pain off and on, pt was seen for same thing last night. she ddi take her meds with relief. had bm last night Triage Nursing Assessment: pt alert, walked in, resp easy, skin w/d/p, gaurding, moves all ext well, Physician History: This is a morbidly obese 19-year-old white female patient who arrives to the emergency department accompanied by her mother by private vehicle. Patient was seen here in this emergency department less than 24 hours ago with the same complaint. In reviewing the patient's charts from the past she has been seen 7 times in our emergency department since January 04, 2024. Her primary care provider is Federica bustillo. She has not seen her primary care provider in 2 months per her report. Patient has a history of migraine headache, polycystic ovary syndrome, depression. Patient states she has had a nuclear medicine scan of the gallbladder approximately 1 to 2 months ago. She also had a gallbladder ultrasound performed as an outpatient and I read the impression which shows negative for cholelithiasis. There is no evidence of any distention. There is no pericholecystic fluid. Patient states her pain in the right upper quadrant occurs approximately 2 hours after eating her usual fatty greasy spicy foods. Patient has never had an upper endoscopy. She has never had a education intern consultation and she has never had a general surgical consultation. Timing/Duration: intermittent Activities at Onset: none Quality: sharpness Abdominal Pain Onset Location: RUQ Pain Radiation: no radiation Severity of Pain-Max: moderate Severity of Pain-Current: moderate Modifying Factors: Improves With: nothing Associated Symptoms: denies symptoms Previous symptoms: same symptoms as today, recently seen, recently treated Allergies/Adverse Reactions: ciprofloxacin [From Cipro] Adverse Reaction (Verified 07/18/24 18:56) Rash Hx Tetanus, Diphtheria Vaccination/Date Given: No Hx Influenza Vaccination/Date Given: No Hx Pneumococcal Vaccination/Date Given: No Immunizations Up to Date: Yes Travel Risk - International Travel Have you traveled outside of the country in past 3 weeks: No - Emerging Infectious Disease Are you exhibiting symptoms associated with any current EIDs: No Symptoms: Abdominal Pain - Review of Systems Constitutional: No Symptoms Eyes: No Symptoms Ears, Nose, & Throat: No Symptoms Respiratory: No Symptoms Cardiac: No Symptoms Abdominal/Gastrointestinal: Abdominal Pain (Right upper quadrant) Genitourinary Symptoms: No Symptoms Musculoskeletal: No Symptoms Skin: No Symptoms Neurological: No Symptoms Psychological: No Symptoms Endocrine: No Symptoms Hematologic/Lymphatic: No Symptoms Immunological/Allergic: No Symptoms All Other Systems: Reviewed and Negative - Past Medical History Pertinent Past Medical History: Yes Neurological History: Migraines ENT History: No Pertinent History Cardiac History: No Pertinent History Respiratory History: No Pertinent History Endocrine Medical History: No Pertinent History Musculoskeletal History: Fractures GI Medical History: No Pertinent History, Other History: No Pertinent History Psycho-Social History: Depression Female Reproductive Disorders: Menstrual Problems Other Medical History: pcos. fatty liver - Past Surgical History Past Surgical History: Yes Neuro Surgical History: No Pertinent History Cardiac: No Pertinent History Respiratory: No Pertinent History Gastrointestinal: No Pertinent History Genitourinary: No Pertinent History Musculoskeletal: No Pertinent History Female Surgical History: No Pertinent History - Female History Hx Last Menstrual Period: unsure Hx Now: No - Social History Smoking Status: Never smoker Exposure to second hand smoke: No Drug Use: none - Social Determinants of Health Will the patient participate in the screening: Declined to provide - Nursing Vital Signs Nursing Vital Signs: Initial Vital Signs Temperature 97.4 F 07/18/24 19:00 Pulse Rate 63 07/18/24 19:00 Respiratory Rate 18 07/18/24 19:00 Blood Pressure 131/98 07/18/24 19:00 O2 Sat by Pulse Oximetry 95 07/18/24 19:00 Pain Scale Pain Intensity 8 - Physical Exam General Appearance: no apparent distress, alert, anxiety, obese Eye Exam: PERRL/EOMI, eyes nml inspection Ears, Nose, Throat Exam: normal ENT inspection, moist mucous membranes Neck Exam: normal inspection, non-tender, supple, full range of motion Respiratory Exam: normal breath sounds, lungs clear, airway intact, No chest tenderness, No respiratory distress Cardiovascular Exam: regular rate/rhythm, normal heart sounds, normal peripheral pulses Gastrointestinal/Abdomen Exam: soft, normal bowel sounds, tenderness (Mild right upper quadrant), guarding (Mild right upper quadrant with palpation), No rebound Pelvic Exam: not done Rectal Exam: not done Back Exam: normal inspection, normal range of motion, No CVA tenderness, No vertebral tenderness Extremity Exam: normal inspection, normal range of motion, pelvis stable Neurologic Exam: alert, oriented x 3, cooperative, laser operator II-XII nml as tested, nml cerebellar function, nml station & gait, sensation nml Skin Exam: normal color, warm, dry Lymphatic Exam: No adenopathy SpO2 Interpretation: normal SpO2: 99 O2 Delivery: Room Air - Course Nursing assessment & vital signs reviewed: Yes Ordered Tests: Active Orders 24 hr Category Date Time Status ABDOMEN AND PELVIS W/0 CONTRAS [CT] Stat Exams 07/18/24 19:50 Taken CULTURE,URINE Stat Lab 07/18/24 20:20 Received HCG QUALITATIVE, URINE Stat Lab 07/18/24 20:20 Completed UA W/RFX UR CULTURE Stat Lab 07/18/24 20:20 Completed Medication Summary Discontinued Medications Generic Name Dose Route Start Last Admin Trade Name Rodq PRN Reason Stop Dose Admin Hydrocodone Bitart/Acetaminophen 1 tab 07/18/24 20:16 07/18/24 20:43 Hydrocodone/Apap 5/325 1 Tab Tablet PO 07/18/24 20:17 1 tab STAT ONE Administration Hydrocodone Bitart/Acetaminophen Confirm 07/18/24 20:41 Hydrocodone/Apap 5/325 1 Tab Tablet Administered 07/18/24 20:42 Dose 1 tab .ROUTE .STK-MED ONE Cephalexin HCl 500 mg 07/18/24 21:12 Cephalexin Mh500 Mg Capsule PO 07/18/24 21:13 STAT ONE Lab/Rad Data: Laboratory Results 07/18/24 07/18/24 Range/Units 20:20 20:20 Urine Color Dark Yellow A (Yellow) Urine Appearance Clear (Clear) Urine pH 5.5 (4.6-8.0) Ur Specific [place] 1.025 (1.005-1.030) Urine Protein Negative (Negative) Urine Glucose (UA) Negative (Negative) mg/dL Urine Ketones Trace A (Negative) Urine Blood Negative (Negative) Urine Nitrite Negative (Negative) Urine Bilirubin Negative (Negative) Urine Urobilinogen 1.0 A (0.2) mg/dL Ur Leukocyte Esterase Small A (Negative) U Hyaline Cast (Auto) NONE SEEN (0-2) /LPF Urine Microscopic RBC 0-2 (0-5) /HPF Urine Microscopic WBC 11-20 A (0-5) /HPF Ur Epithelial Cells Rare (None Seen) /HPF Urine Bacteria Few A (None Seen) /HPF Urine Culture Reflexed YES (NO) Urine HCG, Qual NEGATIVE (NEGATIVE) - Progress Progress: improved Progress Note: 07/18/24 20:22 My medical decision making and the assignment of low to moderate complexity of this patient's medical issue today is based on review of the patient's past medical history, review the patient's medication list, review the patient drug allergy list, history present illness and physical findings on examination. The workup in this patient does not need to be as extensive as yesterday's workup. The patient will undergo a CT scan of the abdomen pelvis without contrast. The last recorded test here in this emergency department was December 2023. Additionally, we will order a urine test. The patient had a urinalysis yesterday. I do not feel it necessary to repeat the remainder of the workup that was done yesterday. Differential diagnosis includes but is not limited to cholecystitis, cholelithiasis, acute appendicitis, ovarian cyst, colitis, urinary tract infection 07/18/24 21:13 I interpreted the patient's laboratory data results. Based on laboratory data results patient has a urinary tract infection. CT scan of the abdomen pelvis without contrast was interpreted by the radiologist. The impression states compared to the CT scan of the abdomen pelvis without contrast performed in May 2024, there is mild distention of the gallbladder. There is food in the stomach. The remainder of the CT scan of the abdomen pelvis without contrast is negative. Counseled pt/family regarding: diagnosis, need for follow-up, rad results Medical Desision Making - Independent Historian Additional History obtained from: Mother - Diagnostic Testing Diagnostic test were ordered, analyzed, and reviewed by me: Yes Radiological Interpretation: Reviewed by me, Teleradiologist Report - Risk of complications The pt has a mod risk of morbidity or mortality based on: Need for prescription drug management - Departure Departure Disposition: Home Clinical Impression: UTI (urinary tract infection), Right upper quadrant abdominal pain Condition: Stable Critical Care Time: No Referrals: FEDERICA BUSTILLO POUCH MAKER [Primary Care Provider] - Follow up/PCP as directed Additional Instructions: Drink plenty of clear liquids. Avoid fatty greasy spicy foods. Take your antib iotics as prescribed. Call your primary care provider tomorrow, 07/19/2024 to make arrangements for follow-up appointment for further evaluation management including referral to a general surgeon and education intern if indicated. Prescriptions: Cephalexin Mh 500 mg [Keflex 500 mg] 500 mg PO TID #21 cap
[2024-07-18 20:31] LABS: HCG URINE TEST NEGATIVE (NEGATIVE)
[2024-07-18 20:37] LABS: Appearance Clear (Clear); Bacteria Few /HPF (None Seen); Bilirubin Negative (Negative); Blood Negative (Negative); Epithelial Cells Rare /HPF (None Seen); Glucose, Urine Negative (Negative); Hyaline Casts NONE SEEN /LPF (0-2); Ketones Trace (Negative); Leukocyte Esterase Small (Negative); Nitrite Negative (Negative); Ph 5.5 (4.6-8.0); Protein,Urine Dip Negative (Negative); RBC 0-2 /HPF (0-5); Specific Gravity 1.025 (1.005-1.030)
[2024-07-18] MEDS ORDERED: NORCO 5/325 MG ONE (20:41)
[2024-07-18] MEDS: NORCO 5/325 MG PO ONE (20:43)
[2024-07-18] MEDS ORDERED: KEFLEX 500 MG ONE (21:16)
[2024-07-18] MEDS: KEFLEX 500 MG PO ONE (21:18)
[2024-07-18] MEDS ORDERED: TORAdol 30 mg Injection ONE ×2 (21:29→21:33)
[2024-07-18] MEDS: TORAdol 30 mg Injection IM ONE (21:37)
[2024-07-18 21:57] VITALS: BP 127/87; PULSE 80; O2SAT 97
--- NOTE | 2024-07-19 08:42 | XRAY ---
Indication: Right upper quadrant pain. Multiple contiguous axial images obtained through the abdomen and pelvis without contrast. Comparison: June 12, 2024 Lung bases remain clear. Heart not enlarged. Stomach is now distended with food/fluid. Gallbladder again mildly distended without gallstones or biliary distention. Noncontrasted stomach and bowel loops appear nonobstructed with normal appendix. Again diffuse fatty liver. No free fluid/air. Remaining liver, gallbladder, pancreas, spleen, adrenal glands, kidneys, ureters, bladder, uterus, and aorta are unremarkable for noncontrast exam. Osseous structures intact. Stable small fatty umbilical hernia. Impression: 1. Again mild distended gallbladder, abnormal in this postprandial patient. Gallbladder sonogram may yield further information. 2. Stable fatty liver. 3. Remaining CT abdomen/pelvis without contrast exam is negative.
== END 2024-07-18 21:50 | disposition home or self-care (01) ==
LOC: ED 17:55
DX: N39.0 Urinary tract infection, site not specified (principal); R10.11 Right upper quadrant pain; Z79.899 Other long term (current) drug therapy
CPT/HCPCS: 74176; 81001; 81025; 87086; 96372; 99284; J1885; A9270-GY

== ENCOUNTER 2024-09-01 10:31 | Day surgery (SDC) | payer OTHER ==
[2024-09-01 10:57] LABS: HCG URINE TEST NEGATIVE (NEGATIVE)
[2024-09-01] MEDS ORDERED: Lactated Ringers 1,000 ML IV SCH (11:00)
[2024-09-01] MEDS ORDERED: propofoL IV ONE (12:47)
[2024-09-01 13:03] VITALS: O2SAT 100
[2024-09-01 13:25] VITALS: BP 116/84; PULSE 54; RESP 18; TEMP 96.8
--- NOTE | 2024-09-02 09:53 | OP ---
SURGERY DATE/TIME: 09/01/2024 [id number] PREOPERATIVE DIAGNOSIS: Epigastric abdominal pain. POSTOPERATIVE DIAGNOSES: 1) Epigastric abdominal pain. 2) Normal esophagogastroduodenoscopy. PROCEDURE: Esophagogastroduodenoscopy. SURGEON: Rob Weber MD ANESTHESIA: IV. CONDITION: Stable. COMPLICATIONS: None. SPECIMENS: None. INDICATION: Patient is a 19-year-old that has epigastric abdominal pain. She also has gallstones identified on imaging that it seems like is mostly gallbladder but she does want to rule out gastric ulcer, gastritis as alternative source. Discussed with her risk of bleeding, perforation, she would like to proceed. FINDINGS: Normal EGD. DESCRIPTION OF PROCEDURE AND FINDINGS: Patient was brought to the operating room. IV anesthesia induced by Anesthesia routinely. The gastroscope was inserted through the mouth, advanced to the third portion of the duodenum. The duodenum was normal in appearance. The stomach normal in appearance. GE junction normal. Esophagus normal. Stomach was suctioned out. Scope was withdrawn. Patient tolerated the procedure well, was taken to recovery in stable condition. RECOMMENDATIONS: Proceed with cholecystectomy as scheduled.
== END 2024-09-01 13:32 | disposition home or self-care (01) ==
LOC: SDC 10:31
PROVIDERS: ATTEND Surgery
DX: R10.13 Epigastric pain (principal); R10.9 Unspecified abdominal pain; Z83.3 Family history of diabetes mellitus; Z80.41 Family history of malignant neoplasm of ovary
CPT/HCPCS: 81025; 82947; J2704